=== PATIENT | female | born 1940 | race Caucasian/White ===

== ENCOUNTER → 2017-01-24 | Outpatient (CLI) | payer MEDICARE ==
[~2017-01-24] MED LIST: ALBU17AE3; ASPI-266 PO; ATN50T; CEPH500C PO; ENLP10T; HYDROCODONE 5/500; KCL10CCR; LAMO25TA71 PO; LISI1TAB78 PO; LISINOPRIL/HCTZ; LNS30CCR; MELO-170 PO; METR500T PO; OMEP20CA12; POTA10CA43 PO; VYTORIN 10/40
--- NOTE | 2017-01-24 17:45 | Diagnostic Imaging Report ---
EXAMINATION: Right breast mammogram screening exam with tomography. INDICATION: Screening with no current symptoms. The patient has history of left mastectomy for breast cancer. COMPARISON: 11/25/15. FINDINGS: The right breast is composed of heterogenously dense parenchyma which may decrease mammographic sensitivity. No mass, architectural distortion or suspicious calcification is seen. Allowing for technique and positional differences, no suspicious change is seen. IMPRESSION: No significant change. ACR BI-RADS Category 2: Benign findings. Result letter will be mailed to the patient. Note: At least 10% of breast cancer is not imaged by mammography. Dictated by: Dictated on workstation # [id number]
== END ==
LOC: RAD 14:18
PROVIDERS: ATTEND Nurse Practitioner Family
DX: Z12.31 Encounter for screening mammogram for malignant neoplasm of breast (principal)

== ENCOUNTER 2017-04-09 09:01 | Outpatient (CLI) | payer MEDICARE ==
[~2017-04-09] VITALS: Ht 160 cm; Wt 81.6 kg
[2017-04-09] MEDS ORDERED: LAMO100T PO (14:31)
[2017-04-09] MEDS ORDERED: POTA10TA10 PO (14:31)
[2017-04-09] MEDS ORDERED: LORA0.5T PO (14:31)
[2017-04-09] MEDS ORDERED: OMEP40CA36 PO (14:31)
[2017-04-09] MEDS ORDERED: ATEN100T PO (14:31)
[2017-04-09] MEDS ORDERED: ATOR10TA66 PO (14:31)
[2017-04-09] MEDS ORDERED: ASPI-586 PO (14:31)
[2017-04-09] MEDS ORDERED: LISI1TAB6 PO (14:31)
[2017-04-09] MEDS ORDERED: METF500T4 PO (14:31)
== END 2017-04-09 14:33 ==
LOC: PREOP 09:01
PROVIDERS: ATTEND Internal Medicine
DX: Z01.818 Encounter for other preprocedural examination (principal); K21.9 Gastro-esophageal reflux disease without esophagitis

== ENCOUNTER 2017-04-12 06:47 | Day surgery (SDC) | payer MEDICARE ==
--- NOTE | 2017-04-10 06:19 | HISTORY AND PHYSICAL ---
DATE OF SERVICE: EGD HISTORY AND PHYSICAL HISTORY OF PRESENT ILLNESS: The patient is a 76-year-old white female referred by Dr. Kaplan for EGD due to progressive reflux symptoms despite the use of daily omeprazole 40 mg which she takes each morning. She does report epigastric burning sensation, gets worse with the afternoon and evening progress. She does not wake up at night with symptoms, generally sleeps well. She denies dysphagia and denies bright red blood per rectum, melena and believes her weight to be stable. She denies sore throat or problems with cough. PAST MEDICAL HISTORY: Significant for essential hypertension, hyperlipidemia with no known history of coronary artery disease. She has a history of insulin resistance and generalized anxiety. MEDICATIONS ON ADMISSION: Included atorvastatin 10 mg daily, omeprazole 40 mg q.a.m. daily, metformin 500 mg b.i.d., Lamictal 100 mg b.i.d., 81 mg aspirin daily, atenolol 100 mg daily, potassium 10 mEq daily, lisinopril HCT 10/12.5 tablets daily and lorazepam 0.5 mg q.6 p.r.n. anxiety. PAST SURGICAL HISTORY: She has had a partial hysterectomy in the distant past, left mastectomy over 10 years ago and right total knee replacement. 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 She has no past smoking history with rare alcohol intake. FAMILY HISTORY: She is not aware of any family history for colon cancer, esophageal or gastric cancer. Her mother at the age of 83 with secondary to lung cancer and was apparently a nonsmoker. She is not aware of her father's side of the family history. She had 1 brother who had heart disease and 1 sister with diabetes. PHYSICAL EXAMINATION: GENERAL: Reveals a pleasant overweight white female in no acute distress. I should add that I had performed an EGD on her almost 3 years ago that revealed erythema at the Z-line without evidence for erosive esophagitis and no evidence for obstruction. VITAL SIGNS: Her weight is 190 pounds is stable compared to 3 years ago. HEENT: Oral cavity reveals a Mallampati class 2 configuration without erythema or exudate. CHEST: Clear. CARDIOVASCULAR: Reveals a regular rate and rhythm without murmur, S3 or S4, blood pressure 140/94. ABDOMEN: Soft, supple. Epigastric pain to palpation is noted without rebound or guarding. No mass or organomegaly is noted. The abdomen soft, nondistended, bowel sounds are positive in all 4 quadrants. EXTREMITIES: Reveal no cyanosis, clubbing or edema. ASSESSMENT AND PLAN: For evaluation of refractory reflux symptoms and epigastric pain, the patient was set up for EGD evaluation on 04/12/2017. The patient was advised to abstain from aspirin in the interim and then continue her other home medications. I thank your for the referral of this pleasant lady. Job ID: [id number] DocumentID: [id number] Dictated Date: 04/08/2017 17:33:07 Helpdesk Specialist Date: 04/08/2017 18:33:10 Dictated By: DALAI COLLINS MD MTDD
[~2017-04-12] VITALS: Ht 160 cm; Wt 81.6 kg
[~2017-04-12 06:47] MED LIST changes: +ASPI-586 PO; +ATEN100T PO; +ATOR10TA66 PO; +LAMO100T PO; +LISI1TAB6 PO; +LORA0.5T PO; +METF500T4 PO; +OMEP40CA36 PO; +POTA10TA10 PO
--- OUTSIDE RECORDS SUMMARY | 2017-04-12 06:51 | XMS REPORT ---
Author Author SANDHYA CONKLIN Organization [facility] Address [address] [place] [address] Care Team Providers Care Caramel Candy Maker Helper Name Role Phone KATERINBREANNASANDHYA Unavailable PROBLEMS Type Condition ICD9-CM Code [id number] Code Onset Dates Condition Status SNOMED Code Problem H/O left mastectomy Z90.12 Active 295600181 Problem Gastroesophageal reflux disease, esophagitis presence not specified K21.9 Active 566039077 Problem Hyperlipidemia, unspecified hyperlipidemia type E78.5 Active 73118657 Problem Hallux abducto valgus, right M20.11 Active 685416299 Problem Hallux valgus of right foot M20.11 Active 324139144 Problem Hypokalemia E87.6 Active 96480642 Problem Pre-diabetes R73.09 Active 261863219 Problem Medicare annual wellness visit, subsequent Z00.00 Active 584999843 Problem Encounter for immunization Z23 Active 224692740 Problem Essential hypertension I10 Active 66418054 Problem Seizures R56.9 Active 70441443 Problem Anxiety F41.9 Active 51431774 Problem Family history of diabetes mellitus Z83.3 Active 890573564 Problem History of cancer Z85.9 Active 256689380 ALLERGIES Substance Reaction Event Type Date Status N.K.D.A. Unknown Non Drug Allergy Mar, Unknown SOCIAL HISTORY No smoking Hx information available PLAN OF CARE Activity Details Follow Up 3 Months. annually for preventive care, sooner for chronic health maintenance Reason:[facility] VITAL SIGNS Height 64 in 2016-04-19 Weight 188.0 lbs 2016-04-19 Temperature 97.9 degrees Fahrenheit 2016-04-19 Heart Rate 72 bpm 2016-04-19 Respiratory Rate 18 2016-04-19 BMI 32.27 kg/m2 2016-04-19 Blood pressure systolic 130 mmHg 2016-04-19 Blood pressure diastolic 88 mmHg 2016-04-19 MEDICATIONS Medication Instructions Dosage Frequency Start Date End Date Duration Status Atorvastatin Calcium 10 mg Orally Once a day 1 tablet 24h Nov, 90 days Active Atenolol 100 MG Orally Once a day 1 tablet 24h 90 days Active Potassium Chloride ER 10 MEQ Orally Once a day 1 tablet with food 24h Jun, 90 days Active Aspirin 81 MG Orally Once a day 1 tablet 24h Active Omeprazole 40 mg Orally Once a day 1 capsule 24h 90 days Active Lorazepam 0.5 MG Orally every 4 hrs PRN 1 tablet as needed Active Lamotrigine 100 MG Orally Twice a day 1 tablet 12h 90 days Active Metformin HCl 500 MG Orally Twice a day take one tablet with evening meal for 2 weeks, then take one tablet twice a day with meals 12h Nov, Active Lisinopril-Hydrochlorothiazide 10-12.5 MG Orally Once a day 1 tablet 24h 90 days Active RESULTS Name Result Date Reference Range A1C (IN HOUSE) 2016-04-19 A1C IN HOUSE 5.7 4.3 - 5.6 % Previous A1c Lot [id number] Exp date 12/2017 PROCEDURES Procedure Date Ordered Related Diagnosis Body Site PCV 13 Apr 19, 2016 ANNUAL WELLNESS VST; PPS SUBSQT VST Apr 19, 2016 SINGLE IMMUNIZATION ADMIN Apr 19, 2016 FLUARIX QUAD P-FREE 3 AND UP .50 2015Apr 19, 2016 IMMUNIZATION ADMIN, EACH ADD (please include units) Apr 19, 2016 IMMUNIZATIONS Vaccine Route Administration Date Status FLUARIX QUAD P-FREE 3 AND UP .50 2015 IM Intramuscular Apr 19, 2016 Administered PCV 13 IM Intramuscular Apr 19, 2016 Administered
--- OUTSIDE RECORDS SUMMARY | 2017-04-12 06:51 | XMS REPORT ---
Author Author SANDHYA CONKLIN eClinicalWorks Address Unknown Phone Unavailable Care Team Providers Care Tool Drawing Checker Name Role Phone SANDHYA CONKLIN CP Unavailable Allergies, Adverse Reactions, Alerts Substance Reaction Event Type N.K.D.A. Info Not Available Non Drug Allergy Problems Problem Type Condition Code Onset Dates Condition Status Assessment Pre-diabetes R73.09 Active Assessment Hyperlipidemia, unspecified hyperlipidemia type E78.5 Active Problem Essential hypertension I10 Active Problem Hyperlipidemia, unspecified hyperlipidemia type E78.5 Active Problem Routine health maintenance Z00.00 Active Problem History of cancer Z85.9 Active Problem H/O left mastectomy Z90.12 Active Problem Seizures R56.9 Active Problem Anxiety F41.9 Active Medications Medication Code System Code Instructions Start Date End Date Status Dosage Atorvastatin Calcium [facility] [address]-31 10 mg Orally Once a day Dec 16, 2015 1 tablet Potassium Chloride ER [facility] [address]-08 10 MEQ Orally Once a day 1 tablet with food Metformin HCl [facility] [address]-42 500 MG Orally Twice a day Dec 16, 2015 take one tablet with evening meal for 2 weeks, then take one tablet twice a day with meals Lisinopril-Hydrochlorothiazide [facility] [address]-45 10-12.5 MG Orally Once a day 1 tablet Atenolol [facility] [address]-07 100 MG Orally Once a day 1 tablet Omeprazole [facility] [address]-23 40 mg Orally Once a day 1 capsule Lorazepam [facility] [address]-75 0.5 MG Orally every 4 hrs PRN 1 tablet as needed Lamotrigine [facility] [address]-72 100 MG Orally Twice a day 1 tablet Aspirin [facility] [address]34 81 MG Orally Once a day 1 tablet Procedures Procedure Coding System Code Date Office Visit, Est Pt., Level 3 CPT-4 59392 Dec 16, 2015 [facility] VISIT ESTABLISHED PATIENT CPT-4 G0467 Dec 16, 2015 Vital Signs Date/Time: Dec 16, 2015 Cardiac Monitoring Heart Rate 64 bpm Weight 194.3 lbs Height 64 in BMI 33.35 Index Blood Pressure Diastolic 76 mmHg Blood Pressure Systolic 118 mmHg Results No Known Results Summary Purpose eClinicalWorks Submission
--- OUTSIDE RECORDS SUMMARY | 2017-04-12 06:51 | XMS REPORT ---
Author Author SANDHYA CONKLIN Organization [facility] Address [address] [place] [address] Care Team Providers Care Financial Reporting Analyst Name Role Phone CONKLINBREANNA RobertELE Unavailable PROBLEMS Type Condition ICD9-CM Code [id number] Code Onset Dates Condition Status SNOMED Code Problem H/O left mastectomy Z90.12 Active 940843092 Problem Gastroesophageal reflux disease, esophagitis presence not specified K21.9 Active 532420610 Problem Hyperlipidemia, unspecified hyperlipidemia type E78.5 Active 92677098 Problem Hallux abducto valgus, right M20.11 Active 223521325 Problem Hallux valgus of right foot M20.11 Active 112408120 Problem Hypokalemia E87.6 Active 17280895 Problem Pre-diabetes R73.09 Active 810574056 Problem Medicare annual wellness visit, subsequent Z00.00 Active 058568192 Problem Encounter for immunization Z23 Active 800007959 Problem Essential hypertension I10 Active 46453226 Problem Seizures R56.9 Active 56667871 Problem Anxiety F41.9 Active 65842268 Problem Family history of diabetes mellitus Z83.3 Active 918248693 Problem History of cancer Z85.9 Active 300840362 ALLERGIES No Information SOCIAL HISTORY Never Assessed PLAN OF CARE VITAL SIGNS MEDICATIONS Medication Instructions Dosage Frequency Start Date End Date Duration Status Lorazepam 0.5 MG Orally every 6 hrs PRN 1 tablet as needed 28 days Active RESULTS No Results PROCEDURES No Known procedures IMMUNIZATIONS No Known Immunizations MEDICAL (GENERAL) HISTORY Type Description Date Medical History Hyperlipidemia Medical History Hypertension Medical History Seizures Medical History Acid Reflux Medical History Breast cancer in 1991 Medical History Anxiety Medical History bladder incontinence Surgical History EGD 06/2014 Surgical History Colonoscopy 06/2014 Surgical History Left mastectomy 1991 Surgical History Hysterectomy- still has right ovary 1981 Surgical History Right total knee replacement 1999 Hospitalization History past surgery Hospitalization History Pneumonia 2002
--- OUTSIDE RECORDS SUMMARY | 2017-04-12 06:51 | XMS REPORT ---
Author Author SANDHYA CONKLIN Organization [facility] Address [address] [place] [address] Care Team Providers Care Funeral Home General Manager Name Role Phone SANDHYA CONKLIN Unavailable PROBLEMS Type Condition ICD9-CM Code GRE08-JC Code Onset Dates Condition Status SNOMED Code Problem H/O left mastectomy Z90.12 Active 232126075 Problem Family history of diabetes mellitus Z83.3 Active 035426304 Problem Routine health maintenance Z00.00 Active 628217666 Problem Essential hypertension I10 Active 33369703 Problem Anxiety F41.9 Active 12513486 Problem History of cancer Z85.9 Active 834306469 Problem Hyperlipidemia, unspecified hyperlipidemia type E78.5 Active 13140295 Problem Seizures R56.9 Active 95652119 ALLERGIES Unknown Allergies SOCIAL HISTORY No smoking Hx information available PLAN OF CARE VITAL SIGNS MEDICATIONS Medication Instructions Dosage Frequency Start Date End Date Duration Status Lorazepam 0.5 MG Orally every 4 hrs PRN 1 tablet as needed Active RESULTS No Results PROCEDURES No Known procedures IMMUNIZATIONS No Known Immunizations
--- OUTSIDE RECORDS SUMMARY | 2017-04-12 06:51 | XMS REPORT ---
Author Author SANDHYA CONKLIN eClinicalWorks Address Unknown Phone Unavailable Care Team Providers Care Azure Principal Solution Specialist Name Role Phone SANDHYA CONKLIN CP Unavailable Allergies, Adverse Reactions, Alerts Substance Reaction Event Type N.K.D.A. Info Not Available Non Drug Allergy Problems Problem Type Condition Code Onset Dates Condition Status Assessment Hyperlipidemia, unspecified hyperlipidemia type E78.5 Active Assessment Routine health maintenance Z00.00 Active Assessment Essential hypertension I10 Active Problem Essential hypertension I10 Active Problem Hyperlipidemia, unspecified hyperlipidemia type E78.5 Active Problem Routine health maintenance Z00.00 Active Problem History of cancer Z85.9 Active Problem H/O left mastectomy Z90.12 Active Problem Seizures R56.9 Active Problem Anxiety F41.9 Active Assessment H/O left mastectomy Z90.12 Active Assessment History of cancer Z85.9 Active Assessment Hypokalemia E87.6 Active Assessment Anxiety F41.9 Active Assessment Gastroesophageal reflux disease, esophagitis presence not specified K21.9 Active Assessment Seizures R56.9 Active Medications Medication Code System Code Instructions Start Date End Date Status Dosage Lamotrigine [facility] [address]-49 100 MG Orally Twice a day [address] [facility] [address]-27 0.5 MG Orally every 4 hrs PRN 1 tablet as needed Lisinopril-Hydrochlorothiazide [facility] [address]-93 10-12.5 MG Orally Once a day [address] [facility] [address]-96 40 mg Orally Once a day 1 capsule Potassium Chloride ER [facility] [address]-27 10 MEQ Orally Once a day 1 tablet with food Aspirin [facility] [address] 81 MG Orally Once a day [address] [facility] [address]-38 100 MG Orally Once a day 1 tablet Procedures Procedure Coding System Code Date Office Visit, Est Pt., Level 4 CPT-4 24991 November 18, 2015 [facility] VISIT ESTABLISHED PATIENT CPT-4 G0467 November 18, 2015 Vital Signs Date/Time: November 18, 2015 Cardiac Monitoring Heart Rate 80 bpm Weight 194.7 lbs Height 64 in Blood Pressure Diastolic 90 mmHg Blood Pressure Systolic 168 mmHg Results No Known Results Summary Purpose eClinicalWorks Submission
--- OUTSIDE RECORDS SUMMARY | 2017-04-12 06:51 | XMS REPORT ---
Author Author SANDHYA CONKLIN Organization [employer] Address Unknown Phone Unavailable Care Team Providers Care Cath Laboratory Technician Name Role Phone SANDHYA CONKLIN CP Unavailable Allergies No Known Allergies Problems Problem Type Condition Code Onset Dates Condition Status Problem Family history of diabetes mellitus Z83.3 Active Problem Essential hypertension I10 Active Problem Hyperlipidemia, unspecified hyperlipidemia type E78.5 Active Problem Routine health maintenance Z00.00 Active Problem History of cancer Z85.9 Active Problem H/O left mastectomy Z90.12 Active Problem Seizures R56.9 Active Problem Anxiety F41.9 Active Medications Medication Code System Code Instructions Start Date End Date Status Dosage Lorazepam [facility] [address]-54 0.5 MG Orally every 4 hrs PRN 1 tablet as needed Results No Known Results Summary Purpose eClinicalWorks Submission
--- OUTSIDE RECORDS SUMMARY | 2017-04-12 06:51 | XMS REPORT ---
Author Author SANDHYA CONKLIN Organization [employer] Address Unknown Phone Unavailable Care Team Providers Care Piling Cutter Name Role Phone SANDHYA CONKLIN CP Unavailable Allergies No Known Allergies Problems No Known Problems Medications No Known Medications Results No Known Results Summary Purpose eClinicalWorks Submission
--- OUTSIDE RECORDS SUMMARY | 2017-04-12 06:51 | XMS REPORT ---
Author Author SANDHYA CONKLIN Organization [facility] Address [address] [place] [address] Care Team Providers Care Wire Mesh Gate Assembler Name Role Phone CONKLINBREANNA RobertELE Unavailable PROBLEMS Type Condition ICD9-CM Code BWC50-BA Code Onset Dates Condition Status SNOMED Code Problem H/O left mastectomy Z90.12 Active 326659742 Problem Gastroesophageal reflux disease, esophagitis presence not specified K21.9 Active 141103218 Problem Hyperlipidemia, unspecified hyperlipidemia type E78.5 Active 16898998 Problem Hallux abducto valgus, right M20.11 Active 904032262 Problem Hallux valgus of right foot M20.11 Active 511415955 Problem Hypokalemia E87.6 Active 53902287 Problem Pre-diabetes R73.09 Active 895695046 Problem Medicare annual wellness visit, subsequent Z00.00 Active 107484830 Problem Encounter for immunization Z23 Active 985508589 Problem Essential hypertension I10 Active 88974010 Problem Seizures R56.9 Active 97144269 Problem Anxiety F41.9 Active 82577952 Problem Family history of diabetes mellitus Z83.3 Active 723587175 Problem History of cancer Z85.9 Active 384012208 ALLERGIES No Information SOCIAL HISTORY Never Assessed PLAN OF CARE VITAL SIGNS MEDICATIONS Medication Instructions Dosage Frequency Start Date End Date Duration Status Lorazepam 0.5 MG Orally every 4 hrs PRN 1 tablet as needed 28 [...]
--- OUTSIDE RECORDS SUMMARY | 2017-04-12 06:52 | XMS REPORT | Continuity of Care Document ---
Author Author [facility] Organization [facility] Address Unknown Phone Unavailable Allergies Active Description Code Type Severity Reaction Onset Reported/Identified Relationship to Patient Clinical Status Yes codeine [id number] Drug Allergy Unknown N/A 07/09/2006 Yes Penicillins [id number] Drug Allergy Unknown N/A 09/08/2007 Yes Sulfa (Sulfonamide Antibiotics) [id number] Drug Allergy Unknown N/A 2007 Yes iodine [id number] Drug Allergy Unknown N/A 07/16/2014 Yes Iodinated Contrast- Oral and IV Dye [id number] Drug Allergy Unknown N/A 03/2017 Medications There is no data. Problems Date Dx Coded Attending Type Code Diagnosis Diagnosed By 11/22/2008 Ot 719.47 11/22/2008 Ot V57.1 01/25/2014 MARIANO CHILDS, DEMI Leblanc Ot 599.0 URIN TRACT INFECTION NOS 01/25/2014 MARIANO CHILDS, DEMI Leblanc Ot 780.4 DIZZINESS AND GIDDINESS 03/30/2014 Ot V76.12 03/30/2014 Ot V10.3 03/30/2014 Ot V76.11 03/30/2014 Ot 780.39 05/06/2014 Ot 793.89 05/06/2014 Ot V10.3 05/06/2014 Ot V76.11 05/06/2014 Ot 611.72 05/06/2014 Ot 611.72 05/06/2014 Ot V67.9 05/06/2014 Ot 174.9 05/06/2014 Ot V10.3 05/06/2014 Ot V76.11 05/06/2014 Ot 715.36 05/06/2014 Ot V43.65 05/06/2014 Ot 241.0 05/06/2014 Ot 244.9 05/06/2014 Ot 787.20 05/06/2014 ANNA VALLECILLO Ot 174.9 05/06/2014 ANNA VALLECILLO Ot V76.11 05/06/2014 PHOENIX CHILDS, FRANKLIN A Ot 298.9 05/06/2014 [place]EN[place] CHILDS, FRANKLIN A Ot 345.90 05/06/2014 [place]EN[place] CHILDS, FRANKLIN A Ot 793.0 05/06/2014 [place]EN[place] CHILDS, FRANKLIN A Ot 715.96 05/06/2014 PH[place]EN[place] CHILDS, FRANKLIN A Ot 959.7 05/06/2014 PHOENIX CHILDS, FRANKLIN A Ot E000.8 05/06/2014 PH[place]ENIX CHILDS, FRANKLIN A Ot E849.0 05/06/2014 PH[place]EN[place] CHILDS, FRANKLIN A Ot E888.9 05/06/2014 [place]EN[place] CHILDS, FRANKLIN A Ot V43.65 05/29/2014 PHOENIX CHILDS, FRANKLIN Bony Ot V76.12 07/16/2014 Ot 530.10 ESOPHAGITIS NOS 07/16/2014 Ot 562.10 DIVERTICULOSIS COLON (W/O MENT OF HEMORR 07/16/2014 Ot V18.51 FAMILY HISTORY, COLONIC POLYPS 07/16/2014 Ot V76.51 SCREEN MAL NEOP-COLON 08/13/2014 Ot V72.84 07/04/2015 KRISTY CHOUDHARY DO Ot E07.9 DISORDER OF THYROID, UNSPECIFIED 07/04/2015 KRISTY CHOUDHARY DO Ot S20.211A CONTUSION OF RIGHT FRONT WALL OF THORAX, 07/04/2015 KRISTY CHOUDHARY DO Ot W19.XXXA UNSPECIFIED FALL, INITIAL ENCOUNTER 07/04/2015 KRISTY CHOUDHARY DO Ot Y99.8 OTHER EXTERNAL CAUSE STATUS 07/04/2015 KRISTY CHOUDHARY DO Ot Z90.12 ACQUIRED ABSENCE OF LEFT BREAST AND NIPP 10/12/2015 Ot 611.72 LUMP OR MASS IN BREAST 10/12/2015 Ot V67.9 FOLLOW-UP EXAM NOS 10/12/2015 Ot 174.9 MALIGN NEOPL BREAST NOS 10/12/2015 Ot V10.3 HX OF BREAST MALIGNANCY 10/12/2015 Ot V76.11 SCRN MAMMO- HIGH RISK PT, MALIGNANT NEOPL 10/12/2015 Ot 715.36 LOC OSTEOARTH NOS-L/LEG 10/12/2015 Ot V43.65 KNEE JOINT REPLACEMENT STATUS 10/12/2015 Ot 241.0 NONTOX UNINODULAR GOITER 10/12/2015 Ot 244.9 HYPOTHYROIDISM NOS 10/12/2015 Ot 787.20 DYSPHAGIA, UNSPECIFIED 10/12/2015 ANNA VALLECILLO PATTERNMAKER HAND Ot 174.9 MALIGN NEOPL BREAST NOS 10/12/2015 ANNA VALLECILLOP Ot V76.11 SCRN MAMMO-HIGH RISK PT, MALIGNANT NEOPL 10/12/2015 PHOENIX CHILDS, FRANKLIN Lovett Ot 298.9 PSYCHOSIS NOS 10/12/2015 PHOENIX CHILDS, FRANKLIN Lovett Ot 345.90 EPILEPSY UNSPEC W/O MENTION INTRACTABLE 10/12/2015 PH[place]EN[place] CHILDS, FRANKLIN Lovett Ot 793.0 NOSP (ABN) FINDINGS ON RADIOLOGICAL OT 10/12/2015 FRANKLIN GARIBAY MD Ot 715.96 OSTEOARTHROS NOS-L/LEG 10/12/2015 FRANKLIN GARIBAY MD Ot 959.7 LOWER LEG INJURY NOS 10/12/2015 FRANKLIN GARIBAY MD Ot E000.8 OTHER EXTERNAL CAUSE STATUS 10/12/2015 FRANKLIN GARIBAY MD Ot E849.0 ACCIDENT IN HOME 10/12/2015 FRANKLIN GARIBAY MD Ot E888.9 FALL NOS 10/12/2015 FRANKLIN GARIBAY MD Ot V43.65 KNEE JOINT REPLACEMENT STATUS 10/12/2015 FRANKLIN GARIBAY MD Ot V76.12 OTH SCREEN MAMMO-MALIGN NEOPLASM OF STEPHANIE 10/12/2015 Ot V72.84 EXAM PRE- OPERATIVE NOS 11/25/2015 Ot 611.72 LUMP OR MASS IN BREAST 11/25/2015 Ot V67.9 FOLLOW-UP EXAM NOS 11/25/2015 Ot 174.9 MALIGN NEOPL BREAST NOS 11/25/2015 Ot V10.3 HX OF BREAST MALIGNANCY 11/25/2015 Ot V76.11 SCRN MAMMO- HIGH RISK PT, MALIGNANT NEOPL 11/25/2015 Ot 715.36 LOC OSTEOARTH NOS-L/LEG 11/25/2015 Ot V43.65 KNEE JOINT REPLACEMENT STATUS 11/25/2015 Ot 241.0 NONTOX UNINODULAR GOITER 11/25/2015 Ot 244.9 HYPOTHYROIDISM NOS 11/25/2015 Ot 787.20 DYSPHAGIA, UNSPECIFIED 11/25/2015 ANNA VALLECILLO PATTERNMAKER HAND Ot 174.9 MALIGN NEOPL BREAST NOS 11/25/2015 VALLECILLO, ANNA M PATTERNMAKER HAND Ot V76.11 SCRN MAMMO-HIGH RISK PT, MALIGNANT NEOPL 11/25/2015 PHOEN[place] CHILDS, FRANKLIN Lovett Ot 298.9 PSYCHOSIS NOS 11/25/2015 [place]EN[place] CHILDS, FRANKLIN Lovett Ot 345.90 EPILEPSY UNSPEC W/O MENTION INTRACTABLE 11/25/2015 FRANKLIN GARIBAY MD Ot 793.0 NOSP (ABN) FINDINGS ON RADIOLOGICAL OT 11/25/2015 FRANKLIN GARIBAY MD Ot 715.96 OSTEOARTHROS NOS-L/LEG 11/25/2015 FRANKLIN GARIBAY MD Ot 959.7 LOWER LEG INJURY NOS 11/25/2015 PHOENIX CHILDS, FRANKLIN Lovett Ot E000.8 OTHER EXTERNAL CAUSE STATUS 11/25/2015 FRANKLIN GARIBAY MD Ot E849.0 ACCIDENT IN HOME 11/25/2015 FRANKLIN GARIBAY MD Ot E888.9 FALL NOS 11/25/2015 FRANKLIN GARIBAY MD Ot V43.65 KNEE JOINT REPLACEMENT STATUS 11/25/2015 FRANKLIN GARIBAY MD Ot V76.12 OTH SCREEN MAMMO-MALIGN NEOPLASM OF STEPHANIE 11/25/2015 Ot V72.84 EXAM PRE- OPERATIVE NOS 11/28/2015 SANDHYA CONKLIN [employer] CARRIER ASSISTANT Ot Z12.31 ENCNTR SCREEN MAMMOGRAM FOR MALIGNANT NE 12/16/2015 SANDHYA CONKLIN [employer] ASSISTANT Ot Z12.31 ENCNTR SCREEN MAMMOGRAM FOR MALIGNANT NE 12/16/2015 SANDHYA CONKLIN [employer] ASSISTANT Ot Z90.12 ACQUIRED ABSENCE OF LEFT BREAST AND NIPP 01/21/2017 SANDHYA CONKLIN [employer] ASSISTANT Ot Z12.31 ENCNTR SCREEN MAMMOGRAM FOR MALIGNANT NE 01/24/2017 SANDHYA CONKLIN [employer] ASSISTANT Ot Z12.31 ENCNTR SCREEN MAMMOGRAM FOR MALIGNANT NE 01/24/2017 Ot V10.3 HX OF BREAST MALIGNANCY 01/24/2017 Ot V76.11 SCRN MAMMO- HIGH RISK PT, MALIGNANT NEOPL 01/24/2017 Ot 715.36 LOC OSTEOARTH NOS-L/LEG 01/24/2017 Ot V43.65 KNEE JOINT REPLACEMENT STATUS 01/24/2017 Ot 241.0 NONTOX UNINODULAR GOITER 01/24/2017 Ot 244.9 HYPOTHYROIDISM NOS 01/24/2017 Ot 787.20 DYSPHAGIA, UNSPECIFIED 01/24/2017 ANNA VALLECILLO PATTERNMAKER HAND Ot 174.9 MALIGN NEOPL BREAST NOS 01/24/2017 ANNA VALLECILLO PATTERNMAKER HAND Ot V76.11 SCRN MAMMO-HIGH RISK PT, MALIGNANT NEOPL 01/24/2017 PHOENIX CHILDS, FRANKLIN Lovett Ot 298.9 PSYCHOSIS NOS 01/24/2017 FRANKLIN GARIBAY MD Ot 345.90 EPILEPSY UNSPEC W/O MENTION INTRACTABLE 01/24/2017 FRANKLIN GARIBAY MD Ot 793.0 NOSP (ABN) FINDINGS ON RADIOLOGICAL OT 01/24/2017 FRANKLIN GARIBAY MD Ot 715.96 OSTEOARTHROS NOS-L/LEG 01/24/2017 FRANKLIN GARIBAY MD Ot 959.7 LOWER LEG INJURY NOS 01/24/2017 FRANKLIN GARIBAY MD Ot E000.8 OTHER EXTERNAL CAUSE STATUS 01/24/2017 FRANKLIN GARIBAY MD Ot E849.0 ACCIDENT IN HOME 01/24/2017 FRANKLIN GARIBAY MD Ot E888.9 FALL NOS 01/24/2017 FRANKLIN GARIBAY MD Ot V43.65 KNEE JOINT REPLACEMENT STATUS 01/24/2017 FRANKLIN GARIBAY MD Ot V76.12 OTH SCREEN MAMMO-MALIGN NEOPLASM OF STEPHANIE 01/24/2017 Ot V72.84 EXAM PRE- OPERATIVE NOS 01/24/2017 SANDHYA CONKLIN [employer] ASSISTANT Ot Z12.31 ENCNTR SCREEN MAMMOGRAM FOR MALIGNANT NE 01/24/2017 SANDHYA CONKLIN [employer] ASSISTANT Ot Z90.12 ACQUIRED ABSENCE OF LEFT BREAST AND NIPP 01/24/2017 SANDHYA CONKLIN [employer] ASSISTANT Ot Z12.31 ENCNTR SCREEN MAMMOGRAM FOR MALIGNANT NE 01/30/2017 SANDHYA CONKLIN [employer] ASSISTANT Ot Z12.31 ENCNTR SCREEN MAMMOGRAM FOR MALIGNANT NE 02/13/2017 SANDHYA CONKLIN [employer] ASSISTANT Ot Z12.31 ENCNTR SCREEN MAMMOGRAM FOR MALIGNANT NE Procedures There is no data. Results There is no data. Encounters ACCT No. Visit Date/Time Discharge Status Pt. Type Provider Facility Loc./Unit Complaint [id number] 04/09/2017 09:01:00 04/09/2017 14:33:00 DIS Outpatient DENNIS CHILDS, DALIA Leblanc [facility] PREOP EGD [id number] 01/24/2017 14:18:00 01/24/2017 23:59:59 CLS Outpatient SANDHYA CONKLIN [employer] ASSISTANT [facility] RAD Z12.31 [id number] 11/25/2015 09:35:00 11/25/2015 23:59:59 CLS Outpatient SANDHYA CONKLIN [employer] ASSISTANT [facility] RAD H/O OF LEFT MASTECTOMY [id number] 07/04/2015 13:05:00 07/04/2015 16:34:00 DIS Emergency KRISTY CHOUDHARY DO [facility] ER FALL/RIGHT RIB PAIN [id number] 05/06/2014 16:04:00 05/06/2014 23:59:59 CLS Outpatient FRANKLIN GARIBAY MD [facility] RAD SCREENING [id number] 01/25/2014 08:12:00 01/25/2014 11:04:00 DIS Emergency DEMI QUINTANA MD [facility] ER DIZZINESS/WEAKNESS VOMITING [id number] 09/16/2013 15:28:00 09/16/2013 23:59:59 CLS Outpatient FRANKLIN GARIBAY MD [facility] RAD FALL AT HOME/PAIN [id number] 08/20/2013 13:12:00 08/20/2013 23:59:59 CLS Outpatient FRANKLIN GARIBAY MD [facility] RAD SEIZURE DISORDER [id number] 02/05/2013 15:34:00 02/05/2013 23:59:59 CLS Outpatient ANNA VALLECILLO [facility] RAD SCREENING [id number] 04/12/2017 06:47:00 ACT Outpatient DALIA COLLINS MD [facility] ENDO GERD [id number] 07/16/2014 07:30:00 Document Registration [id number] 07/15/2014 05:57:00 Document Registration [id number] 03/30/2014 10:21:00 Document Registration [id number] 03/30/2014 10:21:00 Document Registration [id number] 03/30/2014 10:21:00 Document Registration [id number] 07/11/2012 14:46:00 Document Registration [id number] 12/25/2011 15:47:00 Document Registration [id number] 12/17/2011 10:52:00 Document Registration [id number] 01/22/2011 12:27:00 Document Registration [id number] 07/19/2010 08:47:00 Document Registration [id number] 12/14/2009 07:44:00 Document Registration [id number] 12/09/2009 14:17:00 Document Registration [id number] 11/05/2008 12:40:00 Document Registration [id number] 10/14/2008 08:56:00 Document Registration [id number] 04/27/2008 10:13:00 Document Registration [id number] 04/23/2007 10:05:00 Document Registration
--- OUTSIDE RECORDS SUMMARY | 2017-04-12 06:52 | XMS REPORT ---
Author Author LISA CARRILLO Organization [facility] Address [address] [place] [address] Care Team Providers Care Booking Officer Name Role Phone LISA CARRILLO Unavailable PROBLEMS Type Condition ICD9-CM Code [id number] Code Onset Dates Condition Status SNOMED Code Problem H/O left mastectomy Z90.12 Active 560378578 Problem Gastroesophageal reflux disease, esophagitis presence not specified K21.9 Active 191861654 Problem Hyperlipidemia, unspecified hyperlipidemia type E78.5 Active 60140294 Problem Hallux abducto valgus, right M20.11 Active 391839496 Problem Hallux valgus of right foot M20.11 Active 076238835 Problem Hypokalemia E87.6 Active 29029031 Problem Pre-diabetes R73.09 Active 476554800 Problem Medicare annual wellness visit, subsequent Z00.00 Active 287429164 Problem Encounter for immunization Z23 Active 198880818 Problem Essential hypertension I10 Active 38321692 Problem Seizures R56.9 Active 58538593 Problem Anxiety F41.9 Active 41258655 Problem Family history of diabetes mellitus Z83.3 Active 941395605 Problem History of cancer Z85.9 Active 905969383 ALLERGIES No Information SOCIAL HISTORY Never Assessed PLAN OF CARE Activity Details Follow Up prn Reason: VITAL SIGNS Height 64 in 2016-08-17 Blood pressure systolic 140 mmHg 2016-08-17 Blood pressure diastolic 90 mmHg 2016-08-17 MEDICATIONS Unknown Medications RESULTS No Results PROCEDURES Procedure Date Ordered Result Body Site [facility] VISIT ESTABLISHED PATIENT August 17, 2016 IMMUNIZATIONS No Known Immunizations MEDICAL (GENERAL) HISTORY [...]
--- OUTSIDE RECORDS SUMMARY | 2017-04-12 06:52 | XMS REPORT ---
Author Author SANDHYA CONKLIN Organization [facility] Address [address] [place] [address] Care Team Providers Care Identification Officer Name Role Phone CONKLINBREANNA RobertELE Unavailable PROBLEMS Type Condition ICD9-CM Code [id number] Code Onset Dates Condition Status SNOMED Code Problem H/O left mastectomy Z90.12 Active 193844351 Problem Gastroesophageal reflux disease, esophagitis presence not specified K21.9 Active 498392170 Problem Hyperlipidemia, unspecified hyperlipidemia type E78.5 Active 69479603 Problem Hallux abducto valgus, right M20.11 Active 919544193 Problem Hallux valgus of right foot M20.11 Active 183737225 Problem Hypokalemia E87.6 Active 89020282 Problem Pre-diabetes R73.09 Active 705303775 Problem Medicare annual wellness visit, subsequent Z00.00 Active 667384477 Problem Encounter for immunization Z23 Active 088790598 Problem Essential hypertension I10 Active 00716972 Problem Seizures R56.9 Active 10108444 Problem Anxiety F41.9 Active 09639143 Problem Family history of diabetes mellitus Z83.3 Active 016501649 Problem History of cancer Z85.9 Active 924982989 ALLERGIES No Information SOCIAL HISTORY Never Assessed PLAN OF CARE VITAL SIGNS MEDICATIONS Medication Instructions Dosage Frequency Start Date End Date Duration Status Lisinopril-Hydrochlorothiazide 10-12.5 MG Orally Once a day 1 tablet 24h 90 days Active RESULTS No Results PROCEDURES No [...]
--- OUTSIDE RECORDS SUMMARY | 2017-04-12 06:52 | XMS REPORT ---
Author Author SANDHYA CONKLIN Organization [employer] Address Unknown Phone Unavailable Care Team Providers Care Veneer Press Operator Name Role Phone SANDHYA CONKLIN CP Unavailable Allergies No Known Allergies Problems Problem Type Condition Code Onset Dates Condition Status Assessment H/O left mastectomy Z90.12 Active Problem Essential hypertension I10 Active Problem Hyperlipidemia, unspecified hyperlipidemia type E78.5 Active Problem Routine health maintenance Z00.00 Active Problem History of cancer Z85.9 Active Problem H/O left mastectomy Z90.12 Active Problem Seizures R56.9 Active Problem Anxiety F41.9 Active Medications No Known Medications Results No Known Results Summary Purpose [employer] Submission
--- OUTSIDE RECORDS SUMMARY | 2017-04-12 06:52 | XMS REPORT ---
Author Author SANDHYA CONKLIN Organization [employer] Address Unknown Phone Unavailable Care Team Providers Care Neck Cutter Name Role Phone SANDHYA CONKLIN CP Unavailable Allergies No Known Allergies Problems Problem Type Condition Code Onset Dates Condition Status Assessment Gastroesophageal reflux disease, esophagitis presence not specified K21.9 Active Assessment Essential hypertension I10 Active Assessment Hyperlipidemia, unspecified hyperlipidemia type E78.5 Active Assessment Hypokalemia E87.6 Active Problem Essential hypertension I10 Active Problem Hyperlipidemia, unspecified hyperlipidemia type E78.5 Active Problem Routine health maintenance Z00.00 Active Problem History of cancer Z85.9 Active Problem H/O left mastectomy Z90.12 Active Problem Seizures R56.9 Active Problem Anxiety F41.9 Active Medications No Known Medications Procedures Procedure Coding System Code Date GLYCATED HEMOGLOBIN TEST CPT-4 82156 Dec 12, 2015 VENIPUNCT, ROUTINE* CPT-4 45728 Dec 12, 2015 [facility] CPT-4 NOBLL Dec 12, 2015 Results No Known Results Summary Purpose [employer] Submission
[2017-04-12] MEDS ORDERED: D5 LR IV SOLUTION 1,000 ML IV STA (06:59)
[2017-04-12] MEDS ORDERED: HURRICAINE EXT TUBE (BENZOCAINE) XX PRN (07:00)
[2017-04-12] MEDS ORDERED: MIDAZOLAM 2 MG/2 ML (VERSED) VIAL IVP PRN (07:00)
[2017-04-12] MEDS ORDERED: 1/2 NS IV SOLUTION 1,000 ML IV ONE (07:08)
[2017-04-12 07:17] VITALS: BP 176/74
--- NOTE | 2017-04-12 07:45 | Pre-Op Note & Conscious Sedat ---
Pre-Operative Progress Note H&P Reviewed The H&P was reviewed, patient examined and no changes noted. Date H&P Reviewed: Apr 12, 2017 Time H&P Reviewed: 07:45 Conscious Sedation Pre-Proced ASA Class: 2 Airway Mallampati Classification: ([place] appropriate class) I. II. III, IV Lungs Heart ASA score ASA 1: a normal healthy patient ASA 2: a patient with a mild systemic disease (mid diabetes, controlled hypertension, obesity ASA 3: a patient with a severe systemic disease that limits activity (angina , COPD, prior Myocardial infarction) ASA 4: a patient with an incapacitating disease that is a constant threat to life (CHF, renal failure) ASA 5: a moribund patient not expected to survive 24 hrs. (ruptured aneurysm) ASA 6: a declared brain patient whose organs are being harvested. For emergent operations, add the letter E after the classification Grade 2 Sedation Plan: Analgesia, Amnesia, Plan communicated to team members, Discussed options with patient/fam, Discussed risks with patient/fam Note The patient is an appropriate candidate to undergo the planned procedure, sedation, and anesthesia. The patient immediately re-assessed prior to indication. DALIA COLLINS MD Apr 12, 2017 07:45
[2017-04-12] MEDS ORDERED: HURRICAINE EXT TUBE (BENZOCAINE) ONE (07:55)
[2017-04-12] MEDS ORDERED: MIDAZOLAM 2 MG/2 ML (VERSED) VIAL ONE (07:55)
[2017-04-12] MEDS ORDERED: fentaNYL INJECTION 100 MCG/2 ML AMP ONE (07:55)
[2017-04-12] MEDS ORDERED: LIDOCAINE JELLY 2% (XYLOCAINE) 5 ML TUBE ONE (07:56)
[2017-04-12] MEDS: fentaNYL INJECTION 100 MCG/2 ML AMP IVP PRN ×2 (08:03→08:10)
[2017-04-12 08:45] VITALS: BP 128/65
[2017-04-12 09:15] VITALS: BP 156/82
[2017-04-12 09:50] VITALS: BP 156/82
--- NOTE | 2017-04-12 18:48 | OPERATIVE REPORT ---
DATE OF SERVICE: EGD SUMMARY INDICATION FOR THE PROCEDURE: Reflux symptoms refractory to daily PPI therapy. DESCRIPTION OF PROCEDURE: The patient was placed in the left lateral decubitus position. The endoscope was inserted in the oral cavity and under direct visualization, the esophagus was intubated. The endoscope was passed down the esophagus through the stomach and second portion of the duodenum. A careful inspection was made as the endoscope was withdrawn. The patient tolerated the procedure well. FINDINGS: The esophagus was unremarkable. There was no evidence of rings, webs, strictures, Robert's change or erosive esophagitis. Biopsy was obtained from the gastroesophageal junction for histopathology evaluation. A small sliding hiatal hernia was present. The cardia, fundus and antrum of the stomach were unremarkable. There was no evidence for gastritis or peptic ulcer disease. The pylorus, the pyloric channel, the duodenal bulb and the second portion of the duodenum were unremarkable as well. ASSESSMENT: Small sliding hiatal hernia is present without evidence for erosive esophagitis. This is an otherwise normal EGD with no evidence for peptic ulcer disease. After reassurance and discussing treatment options, we will have the patient just add Gaviscon or Maalox per taste preference 2 tabs as needed for breakthrough symptoms. If this is not adequate, then could increase omeprazole to b.i.d. before breakfast and the evening meal. I thank you for the referral of this pleasant lady. Job ID: [id number] DocumentID: [id number] Dictated Date: 04/12/2017 10:48:15 Fundraising Assistant Date: 04/12/2017 18:47:58 Dictated By: DALIA COLLINS MD [facility]
== END 2017-04-12 09:50 | disposition home or self-care (01) ==
LOC: ENDO 06:47
PROVIDERS: ATTEND Internal Medicine
DX: K21.9 Gastro-esophageal reflux disease without esophagitis (principal); K44.9 Diaphragmatic hernia without obstruction or gangrene; I10 Essential (primary) hypertension; E78.5 Hyperlipidemia, unspecified; F41.9 Anxiety disorder, unspecified; E88.81 Metabolic syndrome and other insulin resistance; Z79.84 Long term (current) use of oral hypoglycemic drugs; Z79.899 Other long term (current) drug therapy; Z96.651 Presence of right artificial knee joint

== ENCOUNTER → 2017-10-14 | Outpatient (CLI) | payer MEDICARE ==
[~2017-10-14] MED LIST changes: -METF500T4 PO; +METF500T5 PO
== END ==
LOC: RAD 11:51
PROVIDERS: ATTEND Nurse Practitioner Family
DX: Z53.8 Procedure and treatment not carried out for other reasons (principal); S89.91XD Unspecified injury of right lower leg, subsequent encounter

== ENCOUNTER → 2018-08-11 | Outpatient (CLI) | payer MEDICARE ==
[~2018-08-11] MED LIST changes: +METF-397 PO; -METF500T5 PO
--- NOTE | 2018-08-11 14:06 | Diagnostic Imaging Report ---
INDICATION: Left breast carcinoma, status post mastectomy. Correlation is made with prior mammogram from 01/24/2017 and 11/25/2015. Unilateral right 2-D and 3-D diagnostic mammography was performed with CAD. Scattered fibroglandular densities in the right breast are noted. The parenchymal pattern is stable. No mass or malignant appearing microcalcifications are seen. Right axilla is unremarkable. IMPRESSION: BI-RADS category one No mammographic features suspicious for malignancy are identified. ACR BI-RADS Category 1: Negative. Result letter will be mailed to the patient. Note: At least 10% of breast cancer is not imaged by mammography. Dictated by: Dictated on workstation # [id number]
== END ==
LOC: RAD 12:28
PROVIDERS: ATTEND Nurse Practitioner Primary Care
DX: C50.912 Malignant neoplasm of unspecified site of left female breast (principal); R92.2 Inconclusive mammogram; Z90.12 Acquired absence of left breast and nipple

== ENCOUNTER → 2019-09-18 | Outpatient (CLI) | payer MEDICARE ==
[~2019-09-18] MED LIST changes: -LAMO100T PO; +LAMO100T5 PO; +LISI1TAB29 PO; -LISI1TAB6 PO; +OMEP40CA27 PO; -OMEP40CA36 PO
--- NOTE | 2019-09-18 09:58 | Diagnostic Imaging Report ---
INDICATION: Routine screening. Comparison is made with prior mammogram from 08/11/2018 and 01/24/2017. Unilateral right 2-D and 3-D screening mammography was performed with CAD. Scattered fibroglandular densities are identified in the right breast. The parenchymal pattern is stable. No dominant mass or malignant-appearing microcalcifications are seen. Right axilla is unremarkable. IMPRESSION: BI-RADS Category 1 No mammographic features suspicious for malignancy are identified. ACR BI-RADS Category 1: Negative. Result letter will be mailed to the patient. Note: At least 10% of breast cancer is not imaged by mammography. Dictated by: Dictated on workstation # [id number]
== END ==
LOC: RAD 07:52
PROVIDERS: ATTEND Family Medicine
DX: Z12.31 Encounter for screening mammogram for malignant neoplasm of breast (principal)
CPT/HCPCS: 77063

== ENCOUNTER → 2020-01-27 | Outpatient (CLI) | payer MEDICARE ==
--- NOTE | 2020-01-27 11:18 | Diagnostic Imaging Report ---
INDICATION: Epigastric pain. Right upper and lower quadrant pain. PROCEDURE: Ultrasound abdomen complete. TECHNIQUE: Multiple Real-time grayscale images were obtained of the abdomen in various projections. COMPARISON: There are no prior abdominal ultrasound examinations available for comparison. The CT chest, abdomen, and pelvis exam of 07/04/2015 failed to show any abnormality of the liver or gallbladder. FINDINGS: There is no evidence for cholelithiasis or acute cholecystitis and the common bile duct is not dilated. The liver does not appear to be enlarged. There is no focal mass involving the liver and the biliary tree is not abnormally dilated. Spectral and color-flow imaging of the hepatic and portal vein shows that the veins are patent and there is normal directional flow within the veins. The spleen, proximal aorta, inferior vena cava, and the kidneys are unremarkable for an acute abnormality. There is a small 1.2 x 1.3 cm anechoic area in the midportion of the right kidney. Most likely, this represents a cyst. There did seem to be a similar sized area of low density in the right kidney on the prior CT exam. The pancreas is obscured by bowel gas. IMPRESSION: 1. There is no acute abnormality of the abdomen although the pancreas was not well-visualized. 2. If clinical concern regarding an underlying abnormality of the gallbladder persists and further imaging is desired, then a Nuclear Medicine hepatobiliary scan would be recommended. Dictated by: Dictated on workstation # [id number]
== END ==
LOC: RAD 09:12
PROVIDERS: ATTEND Family Medicine
DX: R10.13 Epigastric pain (principal); R10.11 Right upper quadrant pain; R10.12 Left upper quadrant pain
CPT/HCPCS: 76700

== ENCOUNTER → 2020-09-19 | Outpatient (CLI) | payer MEDICARE ==
--- NOTE | 2020-09-19 10:55 | Diagnostic Imaging Report ---
INDICATION: Routine screening. COMPARISON: 09/18/2019 and 08/11/2018. TECHNIQUE: 2D and 3D unilateral right screening mammography was performed with CAD. FINDINGS: Scattered fibroglandular densities are identified in the right breast. The parenchymal pattern is stable. No mass or malignant appearing microcalcifications are seen. The right axilla is unremarkable. IMPRESSION: No mammographic features suspicious for malignancy are identified. ACR BI-RADS Category 1: Negative. Result letter will be mailed to the patient. Note: At least 10% of breast cancer is not imaged by mammography. Dictated by: Dictated on workstation # [id number]
== END ==
LOC: RAD 08:00
PROVIDERS: ATTEND Family Medicine
DX: Z12.31 Encounter for screening mammogram for malignant neoplasm of breast (principal)
CPT/HCPCS: 77063

== ENCOUNTER 2021-01-22 09:19 | Emergency (ER) | payer MEDICARE ==
[~2021-01-22] VITALS: Ht 160 cm; Wt 90.7 kg
[~2021-01-22 09:19] MED LIST changes: -OMEP40CA27 PO; +OMEP40CA6 PO
[2021-01-22] MEDS ORDERED: LACTATED RINGERS 1,000 ML IV ONE (10:15)
[2021-01-22 10:34] LABS: BASOPHILS % (AUTO) 0 % (0-10); EOSINOPHILS # (AUTO) 0.1 10^3/uL (0.0-0.3); EOSINOPHILS % (AUTO) 1 % (0-10); HEMATOCRIT 46 % (35-52); HEMOGLOBIN 14.7 g/dL (11.5-16.0); LYMPHOCYTES # (AUTO) 1.3 10^3/uL (1.0-4.0); LYMPHOCYTES % (AUTO) 16 % (12-44); MEAN CORPUSCULAR HEMOGLOBIN 30 pg (25-34); MEAN CORPUSCULAR HGB CONC 32 g/dL (32-36); MEAN CORPUSCULAR VOLUME 95 fL (80-99); MEAN PLATELET VOLUME 10.1 fL (9.0-12.2); MONOCYTES # (AUTO) 0.8 10^3/uL (0.0-1.0); MONOCYTES % (AUTO) 10 % (0-12); NEUTROPHILS % (AUTO) 73 % (42-75); PLATELET COUNT 225 10^3/uL (130-400); WHITE BLOOD COUNT 8.3 10^3/uL (4.3-11.0)
--- NOTE | 2021-01-22 10:36 | ED General ---
General Chief Complaint: Cough/Cold/Flu Symptoms Stated Complaint: NEG COVID TEST 01/21, COUGH HEADACHE,SORE THROAT Nursing Triage Note: pt presents to ed via pov from home with complaints of cough, sore throat, and malaise since Saturday. pt reprots she tested negative for covid on 01/21 at [facility]. Source of Information: Patient Exam Limitations: No Limitations (DEMI QUINTANA MD) History of Present Illness Date Seen by Provider: Jan 22, 2021 Time Seen by Provider: 10:07 (DEMI QUINTANA MD) Initial Comments To ER with reports of a productive cough, nasal congestion and paranasal pressure and drainage for about 4 days. No fevers or chills. Tested negative for Covid on 01/21. Timing/Duration: 3-4 Days Severity: Moderate Associated Systoms: Cough (GISELLE BROWN APRN) Allergies and Home Medications Allergies Coded Allergies: Iodinated Contrast- Oral and IV Dye (Verified Allergy, Unknown, 04/09/17) Patient Home Medication List Home Medication List Reviewed: Yes (GISELLE BROWN APRN) Aspirin (Aspir 81) 81 Mg Tablet.dr, 81 MG PO DAILY, (Reported) Entered as Reported by: ASHLEY ROSSI on 04/09/17 1431 Atenolol (Atenolol) 100 Mg Tablet, 100 MG PO DAILY, (Reported) Entered as Reported by: ASHLEY ROSSI on 04/09/17 1431 Atorvastatin Calcium (Atorvastatin Calcium) 10 Mg Tablet, 10 MG PO HS, (Reported) Entered as Reported by: ASHLEY ROSSI on 04/09/17 1431 Doxycycline Hyclate (Doxycycline Hyclate) 100 Mg Capsule, 100 MG PO BID Prescribed by: GISELLE BROWN on 01/22/21 1128 Lamotrigine (Lamotrigine) 100 Mg Tablet, 100 MG PO DAILY, (Reported) Entered as Reported by: ASHLEY ROSSI on 04/09/17 1431 Lisinopril/Hydrochlorothiazide (Lisinopril-Hctz 10-12.5 mg Tab) 1 Each Tablet, 1 EACH PO DAILY, (Reported) Entered as Reported by: ASHLEY ROSSI on 04/09/17 1431 Lorazepam (Lorazepam) 0.5 Mg Tablet, 0.5 MG PO QID PRN for ANXIETY, (Reported) Entered as Reported by: ASHLEY ROSSI on 04/09/17 1431 Metformin HCl (Metformin HCl) 500 Mg Tablet, 500 MG PO BID, (Reported) Entered as Reported by: ASHLEY ROSSI on 04/09/17 143 Omeprazole (Omeprazole) 40 Mg Capsule.dr, 40 MG PO DAILY, (Reported) Entered as Reported by: ASHLEY ROSSI on 04/09/17 143 Potassium Chloride (Potassium Chloride) 10 Meq Tablet.er, 10 MEQ PO DAILY, (Reported) Entered as Reported by: ASHLEY ROSSI on 04/09/17 143 Prednisone (Prednisone) 20 Mg Tab, 40 MG PO DAILY Prescribed by: GISELLE BROWN on 01/22/21 1128 Review of Systems Review of Systems Constitutional: see HPI EENTM: see HPI, nose congestion Respiratory: see HPI, cough Cardiovascular: no symptoms reported Genitourinary: no symptoms reported Musculoskeletal: no symptoms reported Skin: no symptoms reported Psychiatric/Neurological: No Symptoms Reported Hematologic/Lymphatic: No Symptoms Reported Immunological/Allergic: no symptoms reported (GISELLE BROWN APRN) Past Erlhrsc-Kemjkl-Gxpodr Hx Patient Social History Tobacco Use?: No Substance use?: No Alcohol Use?: No Pt feels they are or have been: No (DEMI QUINTANA MD) Immunizations Up To Date Tetanus Booster (TDap): Unknown First/Initial COVID19 Vaccinat: june 2020 Second COVID19 Vaccination Abraham: june 2020 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 (DEMI QUINTANA MD) Seasonal Allergies Seasonal Allergies: No (DEMI QUINTANA MD) Past Medical History Surgery/Hospitalization HX: pmh: htn, high chol, gerd, anxiety sx: hyst, l mastectomy, r tkr Hysterectomy COPD, Pulmonary Fibrosis Currently Using CPAP: No Currently Using BIPAP: No Hypertension Reproductive Disorders: No Female Reproductive Disorders: 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 0.0oz. [id number]; 35.00 BMI Method:Stated (DEMI QUINTANA MD) General Appearance: No Apparent Distress, WD/WN Eyes: Bilateral Eye Normal Inspection, Bilateral Eye PERRL, Bilateral Eye EOMI HEENT: PERRL/EOMI, TMs Normal, Normal ENT Inspection, Pharynx Normal Neck: Full Range of Motion, Normal Inspection Respiratory: Normal Breath Sounds, No Accessory Muscle Use, No Respiratory Distress; No Crackles, No Expiration, No Inspiration, No Pleural Rub, No Stridor, No Wheezing Cardiovascular: Regular Rate, Rhythm, Normal Peripheral Pulses Gastrointestinal: Normal Bowel Sounds, Non Tender, Soft Extremity: Normal Capillary Refill, Normal Inspection Neurologic/Psychiatric: Alert, Oriented x3 Skin: normal color, warm/dry (GISELLE BROWN APRN) Progress/Results/Core Measures Suspected Sepsis SIRS Temperature: Pulse: 118 Respiratory Rate: 20 Laboratory Tests 01/22/21 10:15: Blood Pressure 192 /99 Mean: 130 Laboratory Tests 01/22/21 10:15: (DEMI QUINTANA MD) Results/Orders Lab Results Laboratory Tests Test 01/22/21 10:15 Range/Units White Blood Count 8.3 4.3-11.0 10^3/uL Red Blood Count 4.87 3.80-5.11 10^6/uL Hemoglobin 14.7 11.5-16.0 g/dL Hematocrit 46 35-52 % Mean Corpuscular Volume 95 80-99 fL Mean Corpuscular Hemoglobin 30 25-34 pg Mean Corpuscular Hemoglobin Concent 32 32-36 g/dL Red Cell Distribution Width 11.9 10.0-14.5 % Platelet Count 225 130-400 10^3/uL Mean Platelet Volume 10.1 9.0-12.2 fL Immature Granulocyte % (Auto) 0 % Neutrophils (%) (Auto) 73 42-75 % Lymphocytes (%) (Auto) 16 12-44 % Monocytes (%) (Auto) 10 0-12 % Eosinophils (%) (Auto) 1 0-10 % Basophils (%) (Auto) 0 0-10 % Neutrophils # (Auto) 6.0 1.8-7.8 10^3/uL Lymphocytes # (Auto) 1.3 1.0-4.0 10^3/uL Monocytes # (Auto) 0.8 0.0-1.0 10^3/uL Eosinophils # (Auto) 0.1 0.0-0.3 10^3/uL Basophils # (Auto) 0.0 0.0-0.1 10^3/uL Immature Granulocyte # (Auto) 0.0 0.0-0.1 10^3/uL Prothrombin Time 13.4 12.2-14.7 SEC INR Comment 1.0 0.8-1.4 Activated Partial Thromboplast Time 34 24-35 SEC Sodium Level 140 135-145 MMOL/L Potassium Level 3.9 3.6-5.0 MMOL/L Chloride Level 103 98-107 MMOL/L Carbon Dioxide Level 26 21-32 MMOL/L Anion Gap 11 5-14 MMOL/L Blood Urea Nitrogen 16 7-18 MG/DL Creatinine 0.91 0.60-1.30 MG/DL Estimat Glomerular Filtration Rate 59 BUN/Creatinine Ratio 18 Glucose Level 80 70-105 MG/DL Calcium Level 9.7 8.5-10.1 MG/DL Corrected Calcium 9.8 8.5-10.1 MG/DL Total Bilirubin 0.5 0.1-1.0 MG/DL Aspartate Amino Transf (AST/SGOT) 17 5-34 U/L Alanine Aminotransferase (ALT/SGPT) 21 0-55 U/L Alkaline Phosphatase 96 40-136 U/L Total Protein 7.4 6.4-8.2 GM/DL Albumin 3.9 3.2-4.5 GM/DL Influenza Type A (RT-PCR) Not Detected Not Detecte Influenza Type B (RT-PCR) Not Detected Not Detecte SARS-CoV-2 RNA (RT-PCR) Not Detected Not Detecte (GISELLE BROWN APRN) Medications Given in ED Current Medications Medications Dose Ordered Sig/Ever Route Start Time Stop Time Status Last Admin Dose Admin Lactated Ringer's 1,000 ml @ 0 mls/hr Q0M ONCE IV 01/22/21 10:15 01/22/21 10:16 DC 01/22/21 10:27 0 MLS/HR (GISELLE BROWN APRN) Vital Signs/I&O 01/22/21 01/22/21 09:32 09:32 Temp 36.8 Pulse 118 Resp 20 B/P (MAP) 192/99 (130) Pulse Ox 96 O2 Delivery Room Air (GISELLE BROWN APRN) Vital Signs/I&O Capillary Refill : Less Than 3 Seconds (DEMI QUINTANA MD) Blood Pressure Mean: 130 Departure Impression Primary Impression: Upper respiratory infection Disposition: HOME, SELF-CARE Condition: Stable Departure-Patient Inst. Decision time for Depature: 11:27 (GISELLE BROWN APRN) Referrals: DYLAN DOSS DO (PCP/Family) Primary Care Physician Patient Instructions: Bacterial Upper Respiratory Infection, Adult (DC) Add. Discharge Instructions: 1. Steroids and antibiotics as directed 2. Return to ER for any concerns 3. Follow-up with your doctor next week. All discharge instructions reviewed with patient and/or family. Voiced understanding. Scripts Prednisone (Prednisone) 20 Mg Tab 40 MG PO DAILY, #6 TAB 0 Refills Prov: GISELLE BROWN APRN 01/22/21 Doxycycline Hyclate (Doxycycline Hyclate) 100 Mg Capsule 100 MG PO BID, #14 CAP Prov: GISELLE BROWN APRN 01/22/21 DEMI QUINTANA MD Jan 22, 2021 10:36 GISELLE BROWN APRN Jan 22, 2021 11:28
[2021-01-22 10:43] LABS: ALBUMIN 3.9 GM/DL (3.2-4.5); POTASSIUM 3.9 MMOL/L (3.6-5.0)
[2021-01-22 10:44] LABS: CALCIUM 9.7 MG/DL (8.5-10.1)
[2021-01-22 10:45] LABS: PROTHROMBIN TIME PATIENT 13.4 SEC (12.2-14.7); TOTAL PROTEIN 7.4 GM/DL (6.4-8.2)
[2021-01-22 10:47] LABS: BILIRUBIN,TOTAL 0.5 MG/DL (0.1-1.0)
[2021-01-22 10:49] LABS: CREATININE SERUM 0.91 MG/DL (0.60-1.30)
[2021-01-22] MEDS ORDERED: PRD20T PO (11:28)
[2021-01-22] MEDS ORDERED: DOXY100C5 PO (11:28)
[2021-01-22 11:38] VITALS: BP 188/96
--- NOTE | 2021-01-22 11:44 | Diagnostic Imaging Report ---
PATIENT HISTORY: sepsis. TECHNIQUE: Single frontal view of the chest. COMPARISON: None FINDINGS: The lung volumes are normal. No focal consolidation is seen. No large pleural effusion or pneumothorax is seen. The cardiomediastinal silhouette is normal in size and contour. No acute osseous abnormality is seen. IMPRESSION: No acute pulmonary abnormality seen. Dictated by: Dictated on workstation # [id number]
== END 2021-01-22 11:37 | disposition home or self-care (01) ==
LOC: EDUNIT# 09:19 → ER 09:21
DX: J06.9 Acute upper respiratory infection, unspecified (principal); J44.9 Chronic obstructive pulmonary disease, unspecified; I10 Essential (primary) hypertension; K21.9 Gastro-esophageal reflux disease without esophagitis; F41.9 Anxiety disorder, unspecified; E78.00 Pure hypercholesterolemia, unspecified; Z20.822 Contact with and (suspected) exposure to COVID-19; Z79.899 Other long term (current) drug therapy; Z79.82 Long term (current) use of aspirin
CPT/HCPCS: 36415; 71045; 80053; 85025; 85610; 85730; 87636

== ENCOUNTER 2021-03-05 15:50 | Emergency (ER) | payer MEDICARE ==
[~2021-03-05] VITALS: Ht 157.5 cm; Wt 90.7 kg
[~2021-03-05 15:50] MED LIST changes: +DOXY100C5 PO; +PRD20T PO
[2021-03-05] MEDS ORDERED: TETANUS,DIPTH,PERTUSS P/F (BOOSTRIX) 0.5 ML VIAL IM ONE (16:30)
--- NOTE | 2021-03-05 16:32 | ED Fall/Injury ---
General Chief Complaint: Trauma-Non Activation Stated Complaint: FALL Nursing Triage Note: PT AMB TO [facility] WITH COMPLAINT OF FALL. STATES SHE WAS GOING DOWN BACK STEPS TO GO PLAY WITH [employer]. PT HIT LEFT KNEE AND LEFT EYE. DENIES LOC. PT HAS SWELLING TO LEFT KNEE AND ABOVE LEFT EYE. PT HAS ABRAISION TO LEFT EYE (MAXI WILSON) History of Present Illness Date Seen by Provider: Mar 05, 2021 Time Seen by Provider: 16:18 Initial Comments 80 year old female reports missing step and falling, landing on her left knee and contusion to her left frontal scalp. Superficial abrasions to forehead, no active bleeding. Noted ecchymosis to anterior left knee. Patient's had a previous right TKR. Ice pack to left knee. She denies any other injuries. There was no loss of consciousness. She denies headache, dizziness, seizure activity, nausea or vomiting since the fall. Occurred: just prior to arrival Severity: mild Injuries/Pain Location: face, lower extremity (left knee) Context: tripped Loss of Consciousness: no loss of consciousness Associated Symptoms (Fall): Denies Symptoms; No Confusion, No Dizziness, No Headache, No Lightheadedness, No Neck Pain, No Seizures, No Slurred Speech; Trouble Walking (secondary to left knee pain); No Vision Changes (MAXI WILSON) Allergies and Home Medications Allergies Coded Allergies: Iodinated Contrast- Oral and IV Dye (Verified Allergy, Unknown, 04/09/17) Patient Home Medication List Home Medication List Reviewed: Yes (MAXI WILSON) Aspirin (Aspir 81) 81 Mg Tablet.dr, 81 MG PO DAILY, (Reported) Entered as Reported by: ASHLEY ROSSI on 04/09/17 1431 Atenolol (Atenolol) 100 Mg Tablet, 100 MG PO DAILY, (Reported) Entered as Reported by: ASHLEY ROSSI on 04/09/17 143 Atorvastatin Calcium (Atorvastatin Calcium) 10 Mg Tablet, 10 MG PO HS, (Reported) Entered as Reported by: ASHLEY ROSSI on 04/09/17 1431 Doxycycline Hyclate (Doxycycline Hyclate) 100 Mg Capsule, 100 MG PO BID Prescribed by: GISELLE BROWN on 01/22/21 1128 Lamotrigine (Lamotrigine) 100 Mg Tablet, 100 MG PO DAILY, (Reported) Entered as Reported by: ASHLEY ROSSI on 04/09/17 143 Lisinopril/Hydrochlorothiazide (Lisinopril-Hctz 10-12.5 mg Tab) 1 Each Tablet, 1 EACH PO DAILY, (Reported) Entered as Reported by: ASHLEY ROSSI on 04/09/17 143 Lorazepam (Lorazepam) 0.5 Mg Tablet, 0.5 MG PO QID PRN for ANXIETY, (Reported) Entered as Reported by: ASHLEY ROSSI on 04/09/17 143 Metformin HCl (Metformin HCl) 500 Mg Tablet, 500 MG PO BID, (Reported) Entered as Reported by: ASHLEY ROSSI on 04/09/17 143 Omeprazole (Omeprazole) 40 Mg Capsule.dr, 40 MG PO DAILY, (Reported) Entered as Reported by: ASHLEY ROSSI on 04/09/17 143 Potassium Chloride (Potassium Chloride) 10 Meq Tablet.er, 10 MEQ PO DAILY, (Reported) Entered as Reported by: ASHLEY ROSSI on 04/09/17 143 Prednisone (Prednisone) 20 Mg Tab, 40 MG PO DAILY Prescribed by: GISELLE BROWN on 01/22/21 1128 Walker (Ultra-Light Rollator) 1 Each Each, EACH MC DAILY, (DME) Prescribed by: MAXI WILSON on 03/05/21 1721 Review of Systems Review of Systems Constitutional: no symptoms reported, see HPI Musculoskeletal: see HPI, joint pain (Left knee), joint swelling, muscle pain Skin: see HPI, other (Superficial abrasion left forehead) (MAXI WILSON) All Other Systems Reviewed Negative Unless Noted: Yes (MAXI WILSON) Past Tyckdzd-Hctgly-Jneuhb Hx Patient Social History Tobacco Use?: No Use of E-Cig and/or Vaping dev: No Substance use?: No Alcohol Use?: No Pt feels they are or have been: No (MAXI WILSON) Immunizations Up To Date Tetanus Booster (TDap): Unknown First/Initial COVID19 Vaccinat: june 2020 Second COVID19 Vaccination Abraham: june 2020 (MAXI WILSON) Seasonal Allergies Seasonal Allergies: No (MAXI WILSON) Past Medical History Surgery/Hospitalization HX: pmh: htn, high chol, gerd, anxiety sx: hyst, l mastectomy, r tkr Hysterectomy COPD, Pulmonary Fibrosis Currently Using CPAP: No Currently Using BIPAP: No Hypertension Reproductive Disorders: No Female Reproductive Disorders: Denies 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 0.0oz. 81.644358uk; 36.00 BMI Method:Stated General Appearance: WD/WN, no apparent distress HEENT: PERRL/EOMI, normal ENT inspection, TMs normal, pharynx normal Neck: non-tender, full range of motion, supple, normal inspection Cardiovascular: normal peripheral pulses, regular rate, rhythm Respiratory: chest non-tender, lungs clear, normal breath sounds Gastrointestinal: normal bowel sounds, non tender, soft Extremities: normal capillary refill, other (Left knee with ecchymosis anteriorly, range of motion 0 to 20 degrees. 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, no motor/sensory deficits, alert, normal mood/affect, oriented x 3 (MAXI WILSON) Progress/Results/Core Measures Results/Orders Medications Given in ED Current Medications Medications Dose Ordered Sig/Ever Route Start Time Stop Time Status Last Admin Dose Admin Diphtheria/ Tetanus/Acell Pertussis 0.5 ml ONCE ONCE IM 03/05/21 16:30 03/05/21 16:31 DC 03/05/21 17:06 0.5 ML (BRADLY MOTLEY MD) Vital Signs/I&O 03/05/21 03/05/21 16:02 17:32 Pulse 73 66 Resp 20 18 B/P (MAP) 206/105 (138) 167/96 Pulse Ox 97 100 O2 Delivery Room Air (BRADLY MOTLEY MD) Blood Pressure Mean: 138 Progress Progress Note : Time: 16:18 Progress Note Patient seen and evaluated, will obtain x-ray of the left knee and CT of the head. Patient request Tylenol for pain denies any other needs at this time. 1700 CT and x-ray show no acute findings. 1715 Kevin wrap applied to the left knee. Discharge instructions and return precautions reviewed. All questions answered (MAXI WILSON) Diagnostic Imaging Diagonstic Imaging: Xray Plain Films/CT/US/NM/MRI: knee Comments NAME: CORDELIA MORRIS [employer] [facility] REC#: [id number] PT STATUS: REG ER : 1940 PHYSICIAN: MXAI WILSON ADMIT DATE: 03/05/21/ER Signed Date of Exam:03/05/21 KNEE, LEFT, 3 VIEWS CLINICAL HISTORY: Fall. Left knee pain. COMPARISON: None. TECHNIQUE: Three views of the left knee. FINDINGS: There is no acute fracture or dislocation of the left knee. Alignment is anatomic. Mild degenerative changes are seen in the left knee with marginal osteophytes and joint space narrowing. Small joint effusion is seen in the left knee. IMPRESSION: 1. No acute fracture or dislocation in the left knee. 2. Mild osteoarthritis in the left knee. 3. Small left knee joint effusion. Dictated by: Dictated on workstation # [id number] Dict: 03/05/21 165 Trans: 03/05/211700 [facility] [id number] Interpreted by: ITRSO MEDEL DO Electronically signed by: TIRSO MEDEL DO 03/05/211700 Reviewed: Reviewed by Oh Diagonstic Imaging: CT Plain Films/CT/US/NM/MRI: head Comments NAME: CORDELIA MORRIS [employer] [facility] REC#: [id number] PT STATUS: REG ER : 1940 PHYSICIAN: MAXI WILSON ADMIT DATE: 03/05/21/ER Signed Date of Exam:03/05/21 CT HEAD WO EXAMINATION: CT head without contrast. TECHNIQUE: Multiple contiguous axial images were obtained through the brain without the use of intravenous contrast. All CT scans use one or more of the following dose optimizing techniques: automated exposure control, MA and/or KvP adjustment based on patient size and exam type or iterative reconstruction. HISTORY: Fall. Scalp contusion. Head pain. COMPARISON: 09/08/2007. FINDINGS: No large acute territorial ischemia, mass, or hemorrhage. No midline shift or mass effect. The ventricles, cortical sulci, and basilar cisterns are patent and unremarkable. The orbits are normal. Paranasal sinuses are normal. Mastoid air cells are clear. No soft tissue abnormality is seen. No osseus lesion or fracture is seen. IMPRESSION: No large acute territorial ischemia, mass, or hemorrhage. Dictated by: Dictated on workstation # [id number] Dict: 03/05/211640 Trans: 03/05/211646 [facility] [id number] Interpreted by: TIRSO MEDEL DO Electronically signed by: TIRSO MEDEL DO 03/05/211646 Reviewed: Reviewed by Me (MAXI WILSON) Departure Impression Primary Impression: Fall at home Qualified Codes: W19.XXXA - Unspecified fall, initial encounter; Y92.009 - Unspecified place in unspecified non-institutional (private) residence as the place of occurrence of the external cause Additional Impressions: Contusion of left knee Qualified Codes: S80.02XA - Contusion of left knee, initial encounter Contusion of forehead Qualified Codes: S00.83XA - Contusion of other part of head, initial encounter Disposition: HOME, SELF-CARE Condition: Stable Departure-Patient Inst. Decision time for Depature: 17:05 (MAXI WILSON) Referrals: DYLAN DOSS DO (PCP/Family) Primary Care Physician Patient Instructions: Contusion (DC) Add. Discharge Instructions: Ice to left forehead and left knee 20 minutes every 2 hours while awake. Walker or cane, weight bearing as tolerated, left knee. You can obtain a walker tomorrow at [facility]. Alternate between Tylenol 650 mg and ibuprofen 600 mg every 4 hours for pain. Follow-up with your primary care provider if symptoms are not improving or worsen. Take your blood pressure medicine from this morning when you return home. Return to the emergency department for new, urgent healthcare needs. All discharge instructions reviewed with patient and/or family. Voiced understanding. Scripts Walker (Ultra-Light Rollator) 1 Each Each EACH MC DAILY for Pain, #1 0 Refills Prov: MAXI WILSON 03/05/21 ATTENDING PHYSICIAN NOTE: I was physically present as attending physician in the emergency department during the care of this patient, but I was not directly involved in the decision making or delivery of care for this patient. (BRADLY MOTLEY MD) Copy Copies To 1: DYLAN DOSS AMY ARNP Mar 05, 2021 16:32 BRADLY MOTLEY MD Mar 05, 2021 18:45
--- NOTE | 2021-03-05 16:47 | Diagnostic Imaging Report ---
EXAMINATION: CT head without contrast. TECHNIQUE: Multiple contiguous axial images were obtained through the brain without the use of intravenous contrast. All CT scans use one or more of the following dose optimizing techniques: automated exposure control, MA and/or KvP adjustment based on patient size and exam type or iterative reconstruction. HISTORY: Fall. Scalp contusion. Head pain. COMPARISON: 09/08/2007. FINDINGS: No large acute territorial ischemia, mass, or hemorrhage. No midline shift or mass effect. The ventricles, cortical sulci, and basilar cisterns are patent and unremarkable. The orbits are normal. Paranasal sinuses are normal. Mastoid air cells are clear. No soft tissue abnormality is seen. No osseus lesion or fracture is seen. IMPRESSION: No large acute territorial ischemia, mass, or hemorrhage. Dictated by: Dictated on workstation # [id number]
--- NOTE | 2021-03-05 16:57 | Diagnostic Imaging Report ---
CLINICAL HISTORY: Fall. Left knee pain. COMPARISON: None. TECHNIQUE: Three views of the left knee. FINDINGS: There is no acute fracture or dislocation of the left knee. Alignment is anatomic. Mild degenerative changes are seen in the left knee with marginal osteophytes and joint space narrowing. Small joint effusion is seen in the left knee. IMPRESSION: 1. No acute fracture or dislocation in the left knee. 2. Mild osteoarthritis in the left knee. 3. Small left knee joint effusion. Dictated by: Dictated on workstation # [id number]
[2021-03-05] MEDS ORDERED: APAP 325 MG/10.15 ML LIQ (TYLENOL) UDC PO STA (16:59)
[2021-03-05] MEDS ORDERED: ACETAMINOPHEN 325 MG TABLET PO STA (17:02)
[2021-03-05] MEDS ORDERED: ACETAMINOPHEN 325 MG TABLET ONE (17:03)
[2021-03-05] MEDS ORDERED: WALK1EAC23 MC (17:21)
[2021-03-05 17:32] VITALS: BP 167/96
== END 2021-03-05 17:32 | disposition home or self-care (01) ==
LOC: EDUNIT# 15:50 → ER 15:51
DX: S80.02XA Contusion of left knee, initial encounter (principal); S00.83XA Contusion of other part of head, initial encounter; J44.9 Chronic obstructive pulmonary disease, unspecified; I10 Essential (primary) hypertension; K21.9 Gastro-esophageal reflux disease without esophagitis; E78.00 Pure hypercholesterolemia, unspecified; F41.9 Anxiety disorder, unspecified; Z23 Encounter for immunization; Z79.82 Long term (current) use of aspirin; Z79.899 Other long term (current) drug therapy; W10.8XXA Fall (on) (from) other stairs and steps, initial encounter; Y92.009 Unspecified place in unspecified non-institutional (private) residence as the place of occurrence of the external cause
CPT/HCPCS: 70450; 73562; 90471; 90715

== ENCOUNTER → 2021-03-20 | Outpatient (CLI) | payer MEDICARE ==
[~2021-03-20] MED LIST changes: +WALK1EAC23 MC
[2021-03-20 15:20] LABS: HEMATOCRIT 44 % (35-52); HEMOGLOBIN 13.8 g/dL (11.5-16.0); MEAN CORPUSCULAR HEMOGLOBIN 30 pg (25-34); MEAN CORPUSCULAR HGB CONC 32 g/dL (32-36); MEAN CORPUSCULAR VOLUME 96 fL (80-99); PLATELET COUNT 230 10^3/uL (130-400); WHITE BLOOD COUNT 5.6 10^3/uL (4.3-11.0)
--- NOTE | 2021-03-20 15:44 | Diagnostic Imaging Report ---
PROCEDURE: US left lower extremity venous. TECHNIQUE: Multiple real-time grayscale images were obtained over the left lower extremity in various projections. Additional duplex Doppler and color Doppler images were also obtained. INDICATION: Left leg pain and swelling. FINDINGS: There is normal color flow throughout the left lower extremity venous system. Calf compression shows normal augmentation of flow at the popliteal level. No evidence of popliteal cyst. IMPRESSION: Negative left lower extremity venous ultrasound for thrombus. Dictated by: Dictated on workstation # [id number]
[2021-03-20 15:45] LABS: ALBUMIN 3.9 GM/DL (3.2-4.5); POTASSIUM 4.4 MMOL/L (3.6-5.0)
[2021-03-20 15:46] LABS: CALCIUM 9.3 MG/DL (8.5-10.1)
[2021-03-20 15:48] LABS: TOTAL PROTEIN 7.1 GM/DL (6.4-8.2)
[2021-03-20 15:49] LABS: BILIRUBIN,TOTAL 0.5 MG/DL (0.1-1.0)
[2021-03-20 15:51] LABS: CREATININE SERUM 0.84 MG/DL (0.60-1.30)
== END ==
LOC: RAD 14:30
PROVIDERS: ATTEND Family Medicine
DX: M79.605 Pain in left leg (principal); M79.89 Other specified soft tissue disorders; W19.XXXA Unspecified fall, initial encounter
CPT/HCPCS: 36415; 80053; 85027; 85379; 86141

== ENCOUNTER 2021-05-16 13:30 | Outpatient (CLI) | payer MEDICARE ==
[~2021-05-16] VITALS: Ht 160 cm; Wt 90.7 kg
[~2021-05-16 13:30] MED LIST changes: -LISI1TAB29 PO; +LISI1TAB44 PO
[2021-05-16 13:32] VITALS: BP 193/102
[2021-05-16] MEDS ORDERED: EPINEPHrine INJECTION 1 MG/ML AMP IM PRN (13:45)
[2021-05-16] MEDS ORDERED: ACETAMINOPHEN 500 MG TAB (TYLENOL) PO PRN (13:45)
[2021-05-16] MEDS ORDERED: CASIRIVIMAB/IMDEVIMAB 1,200 MG in NS (IVPB) 50 ML IV ONE (13:45)
[2021-05-16] MEDS ORDERED: diphenhydrAMINE 50 MG/ML INJ (BENADRYL) IV PRN (13:45)
[2021-05-16] MEDS ORDERED: ONDANSETRON 4 MG/2 ML (SDV) Z0FRAN IV PRN (13:45)
[2021-05-16 14:31] VITALS: BP 172/81
== END 2021-05-16 14:43 ==
LOC: INFUSION 13:30
PROVIDERS: ATTEND Family Medicine
DX: U07.1 COVID-19 (principal)

== ENCOUNTER → 2021-09-20 | Outpatient (CLI) | payer MEDICARE ==
--- NOTE | 2021-09-20 13:29 | Diagnostic Imaging Report ---
INDICATION: Routine screening. Comparison is made with prior mammogram from 09/19/2020 and 09/18/2019. 2-D and 3-D unilateral right screening mammography was performed with CAD. CAD is utilized. The current study was also evaluated with a Computer Aided Detection (CAD) system. Scattered fibroglandular densities in the right breast are noted. The parenchymal pattern is stable. No mass or malignant-appearing microcalcifications are seen. Right axilla is unremarkable. IMPRESSION: BI-RADS Category 1 No mammographic features suspicious for malignancy are identified. ACR BI-RADS Category 1: Negative. Result letter will be mailed to the patient. Note: At least 10% of breast cancer is not imaged by mammography. Dictated by: Dictated on workstation # [id number]
== END ==
LOC: RAD 09:34
PROVIDERS: ATTEND Family Medicine
DX: Z12.31 Encounter for screening mammogram for malignant neoplasm of breast (principal)
CPT/HCPCS: 77063

== ENCOUNTER 2021-09-26 12:37 | Emergency (ER) | payer MEDICARE ==
[~2021-09-26] VITALS: Ht 160 cm; Wt 90.7 kg
--- NOTE | 2021-09-26 13:26 | ED Upper Extremity ---
General Chief Complaint: Upper Extremity Stated Complaint: FELL, R HAND PAIN, R KNEE GIVES OUT Nursing Triage Note: PT PRESENTS TO ED VIA POV FROM HOME WITH COMPLAINTS OF FALL TODAY AROUND 1100 WHEN HER R KNEE GAVE OUT. PT REPORTS SHE LANDED ON THE SIDE WALK. PT DENIES LOC. PT REPORTS R HAND/WRIST AND R KNEE PAIN. Source: patient Exam Limitations: no limitations History of Present Illness Date Seen by Provider: September 26, 2021 Time Seen by Provider: 13:13 Initial Comments This is an 80-year-old female who presented to the ER via POV with complaints of right hand and knee pain after falling just prior to arrival. States that she was getting out of her truck and was attempting to step onto the curb when her right knee "gave out" and she fell towards her right side. States that she injured her right arm and hit the right side of her cheek on the cement ground. She did not lose consciousness. She does not have any headache or neck pain. Allergies and Home Medications Allergies Coded Allergies: Iodinated Contrast Media (Verified Allergy, Unknown, 04/09/17) Patient Home Medication List Aspirin (Aspir 81) 81 Mg Tablet.dr, 81 MG PO DAILY, (Reported) Entered as Reported by: ASHLEY ROSSI on 04/09/17 1431 Atenolol (Atenolol) 100 Mg Tablet, 100 MG PO DAILY, (Reported) Entered as Reported by: ASHLEY ROSSI on 04/09/17 1431 Atorvastatin Calcium (Atorvastatin Calcium) 10 Mg Tablet, 10 MG PO HS, (Report ed) Entered as Reported by: ASHLEY ROSSI on 04/09/17 1431 Doxycycline Hyclate (Doxycycline Hyclate) 100 Mg Capsule, 100 MG PO BID Prescribed by: GISELLE BROWN on 01/22/21 1128 Lamotrigine (Lamotrigine) 100 Mg Tablet, 100 MG PO DAILY, (Reported) Entered as Reported by: ASHLEY ROSSI on 04/09/17 1431 Lisinopril/Hydrochlorothiazide (Lisinopril-Hctz 10-12.5 mg Tab) 1 Each Tablet, 1 EACH PO DAILY, (Reported) Entered as Reported by: ASHLEY ROSSI on 04/09/17 1431 Lorazepam (Lorazepam) 0.5 Mg Tablet, 0.5 MG PO QID PRN for ANXIETY, (Reported) Entered as Reported by: ASHLEY ROSSI on 04/09/17 1431 Metformin HCl (Metformin HCl) 500 Mg Tablet, 500 MG PO BID, (Reported) Entered as Reported by: ASHLEY ROSSI on 04/09/17 1431 Omeprazole (Omeprazole) 40 Mg Capsule.dr, 40 MG PO DAILY, (Reported) Entered as Reported by: ASHLEY ROSSI on 04/09/17 1431 Potassium Chloride (Potassium Chloride) 10 Meq Tablet.er, 10 MEQ PO DAILY, (Reported) Entered as Reported by: ASHLEY ROSSI on 04/09/17 1431 Prednisone (Prednisone) 20 Mg Tab, 40 MG PO DAILY Prescribed by: GISELLE BROWN on 01/22/21 1128 Walker (Ultra-Light Rollator) 1 Each Each, EACH MC DAILY, (DME) Prescribed by: MAXI WILSON on 03/05/21 1721 Past Vpunshz-Gonyvv-Saxafd Hx Patient Social History Tobacco Use?: No Substance use?: No Alcohol Use?: No Pt feels they are or have been: No Immunizations Up To Date Tetanus Booster (TDap): Unknown First/Initial COVID19 Vaccinat: june 2020 Second COVID19 Vaccination Abraham: june 2020 Third COVID19 Vaccination Date: june 2020 Seasonal Allergies Seasonal Allergies: No Past Medical History Surgery/Hospitalization HX: pmh: htn, high chol, gerd, anxiety sx: hyst, l mastectomy, r tkr Hysterectomy COPD, Pulmonary Fibrosis Currently Using CPAP: No Currently Using BIPAP: No Hypertension Reproductive Disorders: No Female Reproductive Disorders: Denies 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 0.0oz. [id number]; 35.00 BMI Method:Stated Progress/Results/Core Measures Results/Orders My Orders Orders - CAN JI DIRECTOR OF VOCATIONAL TRAINING Hand, Right, 3 Views (09/26/21 13:23) Forearm, Right, 2 Views (09/26/21 13:23) Humerus, Right, 2 Views (09/26/21 13:23) Knee, Right, 3 Views (09/26/21 13:23) Chest 1 View, Ap/Pa Only (09/26/21 13:23) Vital Signs/I&O 09/26/21 13:05 Pulse 69 Resp 18 B/P (MAP) 164/89 (114) Pulse Ox 96 Blood Pressure Mean: 114 Departure Impression Primary Impression: Fall on same level Additional Impression: Knee pain Disposition: 01 HOME, SELF-CARE Condition: Improved Departure-Patient Inst. Decision time for Depature: 15:46 Referrals: DYLAN DOSS DO (PCP/Family) Primary Care Physician Patient Instructions: Knee Pain ED Add. Discharge Instructions: Plan: 1. Use a stable walker whenever you are ambulating this will help prevent you from falling. 2. Use the knee brace to help stabilize your knee while you are walking, you can take this off at bedtime. 3. Follow-up with your primary care provider for your chronic knee pain and instability. 4. You can take Tylenol or ibuprofen as needed for pain per package. 5. Return to the ER for any new, concerning, worsening symptoms. All discharge instructions reviewed with patient and/or family. Voiced understanding. CAN JI DIRECTOR OF VOCATIONAL TRAINING September 26, 2021 13:25
--- NOTE | 2021-09-26 13:53 | Diagnostic Imaging Report ---
INDICATION: Fall with right forearm injury and pain. TECHNIQUE: AP and lateral views of the right forearm were obtained. FINDINGS: There is no acute fracture or malalignment identified. A corticated ossific fragment is seen adjacent to the ulnar styloid process which is likely the result of old injury. No lytic or sclerotic lesion is appreciated. IMPRESSION: No acute right forearm abnormality is identified. Dictated by: Dictated on workstation # [id number]
--- NOTE | 2021-09-26 13:54 | Diagnostic Imaging Report ---
INDICATION: Fall with right knee injury and pain. TECHNIQUE: AP, oblique, and lateral views of the right knee were obtained. COMPARISON: 09/16/2013. FINDINGS: There are stable post operative findings in the right knee related to total arthroplasty. No acute fracture or malalignment is identified. There is no evidence of significant joint fluid. IMPRESSION: Stable post operative findings in the right knee without acute abnormality detected. Dictated by: Dictated on workstation # [id number]
--- NOTE | 2021-09-26 14:44 | Diagnostic Imaging Report ---
INDICATION: Fall. TIME OF EXAM: 1:39 p.m. Correlation is made with prior chest from 01/22/2021. FINDINGS: The heart size is normal. The pulmonary vascularity is unremarkable. The lungs are clear. No infiltrate, effusion or pneumothorax is detected. IMPRESSION: No acute cardiopulmonary process is detected. Dictated by: Dictated on workstation # [id number]
--- NOTE | 2021-09-26 14:44 | Diagnostic Imaging Report ---
CLINICAL HISTORY: Fall. Right arm pain. COMPARISON: None. TECHNIQUE: Two views of the right humerus. FINDINGS: There is no acute fracture or dislocation of the right humerus. Alignment is anatomic. The imaged joint spaces are preserved. No focal osseous lesions are seen. IMPRESSION: 1. No acute fracture or dislocation is seen in the right humerus. Dictated by: Dictated on workstation # [id number]
--- NOTE | 2021-09-26 14:44 | Diagnostic Imaging Report ---
INDICATION: Fall with right hand pain. TIME OF EXAM: 1:45 PM. TECHNIQUE: Three views of the right hand were obtained. FINDINGS: The distal radius and ulna appear intact. There is an ununited fracture of the ulnar styloid which appears chronic. The carpus does show 1st CMC joint degenerative changes. The metacarpals and phalanges are intact. No acute fractures are seen. IMPRESSION: No acute abnormality is detected. Dictated by: Dictated on workstation # [id number]
[2021-09-26 16:13] VITALS: BP 162/84
== END 2021-09-26 16:13 | disposition home or self-care (01) ==
LOC: EDUNIT# 12:37 → ER 12:39
DX: M25.561 Pain in right knee (principal); M79.641 Pain in right hand; W18.30XA Fall on same level, unspecified, initial encounter; Y92.480 Sidewalk as the place of occurrence of the external cause
CPT/HCPCS: 71045; 73060; 73090; 73130; 73562; 99281

== ENCOUNTER 2021-12-03 11:20 | Observation (INO) | payer MEDICARE ==
[~2021-12-03] VITALS: Ht 160 cm; Wt 92.4 kg
--- NOTE | 2021-12-03 11:44 | ED Cough/URI ---
General Chief Complaint: COVID19 Suspect/Confirmed Stated Complaint: VARGAS,SORE THROAT, CONGESTION,CHILLS,FEVER Source: patient Exam Limitations: no limitations History of Present Illness Date Seen by Provider: Dec 03, 2021 Time Seen by Provider: 11:42 Initial Comments Patient is a 81-year-old female with a history of hypertension who presents ED with flulike symptoms. Symptoms started last . She reports dull head pain behind her eyes since . Has been constant without increase intensity and without blurry vision, unilateral weakness or sensory changes. She reports nausea without vomiting. She reports a dry cough. She reports some abdominal discomfort near her right sided abdomen. She also reports some non- specific chest pain described as dull and intermittent with a cough. Patient states she felt short of breath with walking. Denies of any significant leg swelling . Denies wheezing, vomiting or diarrhea. Decreased appetite at home. She states she had COVID back in April. Up-to-date on her COVID boosters. Denies of any urinary symptoms such as pain with urination, decreased urine output. Associated fever and chills. No one else at home with similar symptoms Allergies and Home Medications Allergies Coded Allergies: Iodinated Contrast Media (Verified Allergy, Unknown, 04/09/17) Patient Home Medication List Home Medication List Reviewed: Yes Aspirin (Aspir 81) 81 Mg Tablet.dr, 81 MG PO DAILY, (Reported) Entered as Reported by: ASHLEY ROSSI on 04/09/171430 Last Action: Continued Atenolol (Atenolol) 100 Mg Tablet, 100 MG PO DAILY, (Reported) Entered as Reported by: ASHLEY ROSSI on 04/09/171430 Last Action: Converted Atorvastatin Calcium (Atorvastatin Calcium) 10 Mg Tablet, 10 MG PO HS, (Reported) Entered as Reported by: ASHLEY ROSSI on 04/09/171430 Last Action: Continued Doxycycline Hyclate (Doxycycline Hyclate) 100 Mg Capsule, 100 MG PO BID Prescribed by: GISELLE BROWN on 01/22/21 1128 Lamotrigine (Lamotrigine) 100 Mg Tablet, 100 MG PO DAILY, (Reported) Entered as Reported by: ASHLEY ROSSI on 04/09/171430 Lisinopril/Hydrochlorothiazide (Lisinopril-Hctz 10-12.5 mg Tab) 1 Each Tablet, 1 EACH PO DAILY, (Reported) Entered as Reported by: ASHLEY ROSSI on 04/09/17 1431 Lorazepam (Lorazepam) 0.5 Mg Tablet, 0.5 MG PO QID PRN for ANXIETY, (Reported) Entered as Reported by: ASHLEY ROSSI on 04/09/17 1431 Metformin HCl (Metformin HCl) 500 Mg Tablet, 500 MG PO BID, (Reported) Entered as Reported by: ASHLEY ROSSI on 04/09/17 1431 Omeprazole (Omeprazole) 40 Mg Capsule.dr, 40 MG PO DAILY, (Reported) Entered as Reported by: ASHLEY ROSSI on 04/09/17 1431 Potassium Chloride (Potassium Chloride) 10 Meq Tablet.er, 10 MEQ PO DAILY, (Reported) Entered as Reported by: ASHLEY ROSSI on 04/09/17 1431 Prednisone (Prednisone) 20 Mg Tab, 40 MG PO DAILY Prescribed by: GISELLE BROWN on 01/22/21 1128 Walker (Ultra-Light Rollator) 1 Each Each, EACH MC DAILY, (DME) Prescribed by: MAXI WILSON on 03/05/21 1721 Review of Systems Review of Systems Constitutional: chills, malaise, weakness EENTM: No ear pain, No blurred vision, No double vision Respiratory: cough, short of breath Cardiovascular: chest pain Gastrointestinal: abdominal pain; No diarrhea; nausea; No vomiting Genitourinary: No decreased output, No discharge Musculoskeletal: No back pain, No joint pain Skin: No change in color, No change in hair/nails All Other Systems Reviewed Negative Unless Noted: Yes Past Naewjic-Jjpwci-Jbyztm Hx Immunizations Up To Date Tetanus Booster (TDap): Unknown First/Initial COVID19 Vaccinat: june 2020 Second COVID19 Vaccination Abraham: june 2020 Third COVID19 Vaccination Date: june 2020 Seasonal Allergies Seasonal Allergies: No Past Medical History Surgery/Hospitalization HX: pmh: htn, high chol, gerd, anxiety sx: hyst, l mastectomy, r tkr Hysterectomy COPD, Pulmonary Fibrosis Currently Using CPAP: No Currently Using BIPAP: No Hypertension Reproductive Disorders: No Female 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 0.0oz. [id number]; 35.00 BMI Method:Stated General Appearance: WD/WN, no apparent distress Eyes: Bilateral Eye Normal Inspection, Bilateral Eye PERRL, Bilateral Eye EOMI HEENT: PERRL/EOMI, normal ENT inspection, TMs normal, pharynx normal Neck: non-tender, full range of motion, supple, normal inspection Respiratory: chest non-tender, lungs clear, normal breath sounds, no respiratory distress, no accessory muscle use Cardiovascular: regular rate, rhythm, no edema, no gallop Gastrointestinal: normal bowel sounds, non tender, soft Extremities: normal range of motion, non-tender, normal inspection, no pedal edema Neurologic/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: 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 as tested, no motor/sensory deficits, alert, normal mood/affect, oriented x 3 Skin: normal color, warm/dry Progress/Results/Core Measures Suspected Sepsis SIRS Temperature: Pulse: Respiratory Rate: Laboratory Tests 12/03/21 11:50: White Blood Count 8.5 Blood Pressure / Mean: Laboratory Tests 12/03/21 11:50: Creatinine 0.88, Platelet Count 197, Total Bilirubin 0.5 Results/Orders Lab Results Laboratory Tests Test 12/03/21 11:35 12/03/21 11:50 12/03/21 12:19 Range/Units Influenza Type A (RT-PCR) Not Detected Not Detecte Influenza Type B (RT-PCR) Not Detected Not Detecte SARS-CoV-2 RNA (RT-PCR) Not Detected Not Detecte White Blood Count 8.5 4.3-11.0 10^3/uL Red Blood Count 4.76 3.80-5.11 10^6/uL Hemoglobin 14.5 11.5-16.0 g/dL Hematocrit 45 35-52 % Mean Corpuscular Volume 94 80-99 fL Mean Corpuscular Hemoglobin 31 25-34 pg Mean Corpuscular Hemoglobin Concent 32 32-36 g/dL Red Cell Distribution Width 12.3 10.0-14.5 % Platelet Count 197 130-400 10^3/uL Mean Platelet Volume 10.2 9.0-12.2 fL Immature Granulocyte % (Auto) 0 % Neutrophils (%) (Auto) 76 H 42-75 % Lymphocytes (%) (Auto) 13 12-44 % Monocytes (%) (Auto) 11 0-12 % Eosinophils (%) (Auto) 0 0-10 % Basophils (%) (Auto) 0 0-10 % Neutrophils # (Auto) 6.5 1.8-7.8 10^3/uL Lymphocytes # (Auto) 1.1 1.0-4.0 10^3/uL Monocytes # (Auto) 0.9 0.0-1.0 10^3/uL Eosinophils # (Auto) 0.0 0.0-0.3 10^3/uL Basophils # (Auto) 0.0 0.0-0.1 10^3/uL Immature Granulocyte # (Auto) 0.0 0.0-0.1 10^3/uL Sodium Level 141 135-145 MMOL/L Potassium Level 3.6 3.6-5.0 MMOL/L Chloride Level 106 98-107 MMOL/L Carbon Dioxide Level 24 21-32 MMOL/L Anion Gap 11 5-14 MMOL/L Blood Urea Nitrogen 15 7-18 MG/DL Creatinine 0.88 0.60-1.30 MG/DL Estimat Glomerular Filtration Rate 66 BUN/Creatinine Ratio 17 Glucose Level 83 70-105 MG/DL Calcium Level 9.4 8.5-10.1 MG/DL Corrected Calcium 9.6 8.5-10.1 MG/DL Total Bilirubin 0.5 0.1-1.0 MG/DL Aspartate Amino Transf (AST/SGOT) 14 5-34 U/L Alanine Aminotransferase (ALT/SGPT) 19 0-55 U/L Alkaline Phosphatase 89 40-136 U/L Troponin I 0.047 H <0.028 NG/ML B-Type Natriuretic Peptide 287.3 H <100.0 PG/ML Total Protein 7.0 6.4-8.2 GM/DL Albumin 3.8 3.2-4.5 GM/DL Lipase 25 8-78 U/L Urine Color YELLOW Urine Clarity SL CLOUDY Urine pH 6.5 5-9 Urine Specific [place] 1.020 1.016-1.022 Urine Protein 2+ H NEGATIVE Urine Glucose (UA) NEGATIVE NEGATIVE Urine Ketones TRACE H NEGATIVE Urine Nitrite NEGATIVE NEGATIVE Urine Bilirubin 1+ H NEGATIVE Urine Urobilinogen 4.0 < = 1.0 MG/DL Urine Leukocyte Esterase 2+ H NEGATIVE Urine RBC (Auto) 1+ H NEGATIVE Urine RBC 2-5 H /HPF Urine WBC 5-10 H /HPF Urine Squamous Epithelial Cells 5-10 /HPF Urine Crystals NONE /LPF Urine Bacteria MODERATE H /HPF Urine Casts PRESENT /LPF Urine Hyaline Casts 10-25 H /LPF Urine Mucus MODERATE H /LPF Urine Culture Indicated YES My Orders Orders - DAVID HERNÁNDEZ PA Covid 19 Inhouse Test (12/03/21 11:22) Influenza A And B By Pcr (12/03/21 11:22) Cbc With Automated Diff (12/03/21 11:40) Comprehensive Metabolic Panel (12/03/21 11:40) Lipase (12/03/21 11:40) Troponin I Jeffrey (12/03/21 11:40) Bnp Jeffrey (12/03/21 11:40) Ekg Tracing (12/03/21 11:40) Chest 1 View, Ap/Pa Only (12/03/21 11:40) Urinalysis (12/03/21 11:40) Acetaminophen Tablet (Tylenol Tablet) (12/03/21 11:45) Urine Culture (12/03/21 12:19) Aspirin Chewable Tablet (Baby Aspirin Ch (12/03/21 12:45) Enoxaparin Injection (Lovenox Injection) (12/03/21 13:15) Iv/Invasive Line Insertion .IV start (12/03/21 13:05) Ceftriaxone 1 Gm Pre-Mix (Rocephin 1 Gm (12/03/21 13:06) Ed Admission (Communication) (12/03/21 13:09) Medications Given in ED Current Medications Medications Dose Ordered Sig/Ever Route Start Time Stop Time Status Last Admin Dose Admin Acetaminophen 1,000 mg ONCE ONCE PO 12/03/21 11:45 12/03/21 11:46 DC 12/03/21 11:59 1,000 MG Aspirin 324 mg ONCE ONCE PO 12/03/21 12:45 12/03/21 12:46 DC 12/03/21 12:54 324 MG Vital Signs/I&O 12/03/21 12/03/21 11:31 11:59 Temp 36.7 36.7 Pulse 70 Resp 20 B/P (MAP) 200/82 (121) Pulse Ox 96 O2 Delivery Room Air Capillary Refill : Departure Communication (PCP) Patient EKG showed normal sinus rhythm. She had a slight increase in her troponin and BNP. Nonspecific chest pain but does report some shortness of breath with ambulation. Chest x-ray showed cardiomegaly without evidence of consolidation or pneumonia. No significant leg swelling. Normal white blood count, kidney function, liver function. Urinalysis was concerning for UTI. Was given aspirin. She is currently on atenolol. She was hypertensive but this improved without intervention. She really did not have any severe tenderness on palpation of the abdomen. She did report some right-sided abdominal pain so CT abdomen pelvis was ordered secondary to not having ultrasound at this time. She is allergic to contrast so this was performed without. CT scan was unremarkable. Nausea without vomiting or diarrhea. Concerning for the NSTEMI. Patient was discussed with Dr. Shukla who recommends 1 dose of Lovenox and trend troponin. Does not appear to be acute coronary syndrome however due to her complaints recommend further evaluation. No known history of coronary artery disease or coronary stents according to patient Impression Primary Impression: NSTEMI (non-ST elevated myocardial infarction) Disposition: ADMITTED INPATIENT Condition: Stable Admissions Decision to Admit Reason: Admit from ER (General) Decision to Admit/Date: Dec 03, 2021 Time/Decision to Admit Time: 13:10 Departure-Patient Inst. Referrals: DYLAN DOSS DO (PCP/Family) Primary Care Physician DAVID HERNÁNDEZ Dec 03, 2021 11:44
[2021-12-03] MEDS ORDERED: ACETAMINOPHEN 500 MG TAB (TYLENOL) PO ONE (11:45)
[2021-12-03 12:00] LABS: BASOPHILS % (AUTO) 0 % (0-10); EOSINOPHILS % (AUTO) 0 % (0-10); HEMATOCRIT 45 % (35-52); HEMOGLOBIN 14.5 g/dL (11.5-16.0); LYMPHOCYTES # (AUTO) 1.1 10^3/uL (1.0-4.0); LYMPHOCYTES % (AUTO) 13 % (12-44); MEAN CORPUSCULAR HEMOGLOBIN 31 pg (25-34); MEAN CORPUSCULAR HGB CONC 32 g/dL (32-36); MEAN CORPUSCULAR VOLUME 94 fL (80-99); MEAN PLATELET VOLUME 10.2 fL (9.0-12.2); MONOCYTES # (AUTO) 0.9 10^3/uL (0.0-1.0); MONOCYTES % (AUTO) 11 % (0-12); NEUTROPHILS # (AUTO) 6.5 10^3/uL (1.8-7.8); NEUTROPHILS % (AUTO) 76 % (42-75); PLATELET COUNT 197 10^3/uL (130-400); WHITE BLOOD COUNT 8.5 10^3/uL (4.3-11.0)
[2021-12-03 12:10] LABS: ALBUMIN 3.8 GM/DL (3.2-4.5); POTASSIUM 3.6 MMOL/L (3.6-5.0)
[2021-12-03 12:11] LABS: CALCIUM 9.4 MG/DL (8.5-10.1)
[2021-12-03 12:14] LABS: BILIRUBIN,TOTAL 0.5 MG/DL (0.1-1.0)
[2021-12-03 12:16] LABS: CREATININE SERUM 0.88 MG/DL (0.60-1.30)
[2021-12-03 12:25] LABS: CLARITY,URINE SL CLOUDY; COLOR,URINE YELLOW; GLUCOSE, URINE (UA) NEGATIVE (NEGATIVE); KETONES,URINE TRACE (NEGATIVE); LEUKOCYTE ESTERASE ,URINE 2+ (NEGATIVE); NITRITE,URINE NEGATIVE (NEGATIVE); PH,URINE 6.5 (5-9); PROTEIN,URINE 2+ (NEGATIVE)
--- NOTE | 2021-12-03 12:26 | Diagnostic Imaging Report ---
INDICATION: Cough. COMPARISON is made with prior exam of 09/26/2021 FINDINGS: There is mild cardiomegaly. There is left basilar atelectasis and/or pneumonitis. There is no pleural effusion or pneumothorax. The mediastinum is unremarkable IMPRESSION: Cardiomegaly with minimal left basilar subsegmental atelectasis and/or pneumonitis. Dictated by: Dictated on workstation # [id number]
[2021-12-03 12:41] LABS: BACTERIA,URINE MODERATE /HPF
[2021-12-03] MEDS ORDERED: ASPIRIN 81 MG CHEW (CHILDREN'S ASA) PO ONE (12:45)
[2021-12-03] MEDS ORDERED: cefTRIAXone 1 GM PRE-MIX 50 ML IV STA (13:06)
[2021-12-03] MEDS ORDERED: ENOXAPARIN 100 MG/1 ML (LOVENOX) SYR SC ONE (13:15)
[2021-12-03] MEDS ORDERED: polyethylene glycoL POWDER 17 GM (MIRALAX) PACK PO PRN (14:15)
[2021-12-03] MEDS ORDERED: ONDANSETRON 4 MG (ZOFRAN) ORAL DISSOLVE TAB PO PRN (14:15)
[2021-12-03] MEDS ORDERED: ENOXAPARIN 100 MG/1 ML (LOVENOX) SYR SC SCH (14:15)
[2021-12-03] MEDS ORDERED: BISACODYL 10 MG SUPP (DULCOLAX) PR PRN (14:15)
[2021-12-03] MEDS ORDERED: LACTULOSE SYRUP 10GM/15ML (ENULOSE) 30ML UDC PO PRN (14:15)
[2021-12-03] MEDS ORDERED: ONDANSETRON 4 MG/2 ML (SDV) Z0FRAN IV PRN (14:15)
[2021-12-03] MEDS ORDERED: MILK OF MAGNESIA 400 MG/5 ML 30 ML UDC PO PRN (14:15)
[2021-12-03] MEDS ORDERED: CALCIUM CARBONATE 500 MG (TUMS) TAB.CHEW PO PRN (14:15)
[2021-12-03] MEDS ORDERED: diphenhydrAMINE 25 MG TAB (BENADRYL) PO PRN (14:15)
[2021-12-03] MEDS ORDERED: ANTACID SUSP 30 ML UDC (MYLANTA) PO PRN (14:15)
[2021-12-03] MEDS ORDERED: MELATONIN 3 MG TABLET PO PRN (14:15)
--- NOTE | 2021-12-03 14:20 | Diagnostic Imaging Report ---
CT ABDOMEN/PELVIS WO TECHNIQUE: Unenhanced CT imaging of the abdomen and pelvis was performed. 2-D reformats are created and submitted for interpretation. Automatic exposure controls were utilized to optimize patient dose. INDICATION: Right-sided abdominal pain COMPARISON: 07/04/2015 FINDINGS: Evaluation of the abdominal viscera is suboptimal without contrast. Lower chest: There is a small amount of linear atelectasis within the right lower lobe. No pericardial or pleural effusion. Peritoneum: No free intraperitoneal air or fluid. Liver and biliary system: Unenhanced liver is normal. The gallbladder is normal. No biliary duct dilation. Spleen and Pancreas: Spleen is normal. Unenhanced pancreas is grossly normal. Adrenals: Normal. tract: No renal or ureteral calculi. No obstructive uropathy. Hysterectomy. No adnexal mass. GI tract: Stomach is decompressed. No bowel obstruction. Sigmoid colon diverticulosis without diverticulitis. Normal appendix. Vasculature and Lymph nodes: Normal caliber aorta with mild atherosclerotic plaquing. No abdominal or pelvic lymphadenopathy. Musculoskeletal: No concerning osseous lesion. IMPRESSION: 1. No acute obstructive or inflammatory process. 2. The appendix is normal. 3. No urinary tract calculi. Dictated by: Dictated on workstation # [id number]
[2021-12-03 14:38] VITALS: BP 147/72
[2021-12-03 16:12] VITALS: BP 213/86
--- NOTE | 2021-12-03 16:12 | Consultation-Cardiology ---
HPI-Cardiology Cardiology Consultation: Date of Consultation 12/03/21 Date of Admission 12/03/21 Attending Physician Shauna Rosenberg DO Admitting Physician Admitting Physician: Evelina Turner MD Attending Physician: Evelina Turner MD Consulting Physician NATE BOONE JR, MD HPI: Time Seen by a Provider: 16:07 Chief Complaint: REASON FOR CONSULTATION: Abnormal troponin level. I had the pleasure of seeing Marianne on the medical/surgical unit at [facility] in [place], [place] today. She has no known history of coronary artery disease but risk factors of hypertension and hyperlipidemia. Although she takes metformin, she tells me she is not diabetic. For the past couple of days she has had a headache as well as fever and chills. She has also had a cough and been slightly short of breath. The symptoms persisted into this morning and she was concerned that she might have COVID so she came to the emergency room for further evaluation. Her COVID test was negative but during her evaluation, she was found to have an elevated troponin level and a cardiology consultation was requested. She does get some light chest pain off and on over the years but nothing severe. She denies paroxysmal nocturnal dyspnea or orthopnea. She has had some dizzy spells and has fallen down a couple of times but not sustained any major injuries or fractures. She denies any syncope. She gets some very mild ankle edema from time to time. Certain portions of this document may have been dictated utilizing voice recognition technology. Inherent to this technology, typographical and grammatical errors may exist. As much as I am diligent to identify and correct these mistakes, some errors may remain in the document. Review of Systems-Cardiology Review of Systems Other comments Review of 10 organ systems is as per the history of present illness, otherwise negative. All Other Systems Reviewed Negative Unless Noted: Yes CXL-Oimnbg-Qvqass Hx Patient Social History Smoking Status: Never a Smoker Have you traveled recently?: No Alcohol Use?: No Pt feels they are or have been: No Immunizations Up To Date Tetanus Booster (TDap): Unknown Date of Pneumonia Vaccine: Jun 27, 2009 Date of Influenza Vaccine: Jan 15, 2017 Past Medical History PMH As described under Assessment. Family Medical History Family Medical History: One of her brothers had a myocardial infarction at the age of 52. Allergies and Home Medications Allergies Coded Allergies: Iodinated Contrast Media (Verified Allergy, Unknown, 04/09/17) Patient Home Medication List Home Medication List Reviewed: Yes Aspirin (Aspir 81) 81 Mg Tablet.dr, 81 MG PO DAILY, (Reported) Entered as Reported by: ASHLEY ROSSI on 04/09/171430 Last Action: Continued Atenolol (Atenolol) 100 Mg Tablet, 100 MG PO DAILY, (Reported) Entered as Reported by: ASHLEY ROSSI on 04/09/171430 Last Action: Converted Atorvastatin Calcium (Atorvastatin Calcium) 10 Mg Tablet, 10 MG PO HS, (Reported) Entered as Reported by: ASHLEY ROSSI on 04/09/171430 Last Action: Continued Doxycycline Hyclate (Doxycycline Hyclate) 100 Mg Capsule, 100 MG PO BID Prescribed by: GISELLE BROWN on 01/22/21 1128 Lamotrigine (Lamotrigine) 100 Mg Tablet, 100 MG PO DAILY, (Reported) Entered as Reported by: ASHLEY ROSSI on 04/09/171430 Lisinopril/Hydrochlorothiazide (Lisinopril-Hctz 10-12.5 mg Tab) 1 Each Tablet, 1 EACH PO DAILY, (Reported) Entered as Reported by: ASHLEY ROSSI on 04/09/171430 Lorazepam (Lorazepam) 0.5 Mg Tablet, 0.5 MG PO QID PRN for ANXIETY, (Reported) Entered as Reported by: ASHLEY ROSSI on 04/09/171430 Metformin HCl (Metformin HCl) 500 Mg Tablet, 500 MG PO BID, (Reported) Entered as Reported by: ASHLEY ROSSI on 04/09/171430 Omeprazole (Omeprazole) 40 Mg Capsule.dr, 40 MG PO DAILY, (Reported) Entered as Reported by: ASHLEY ROSSI on 04/09/171430 Potassium Chloride (Potassium Chloride) 10 Meq Tablet.er, 10 MEQ PO DAILY, (Reported) Entered as Reported by: ASHLEY ROSSI on 04/09/171430 Prednisone (Prednisone) 20 Mg Tab, 40 MG PO DAILY Prescribed by: GISELLE BROWN on 01/22/21 1128 Walker (Ultra-Light Rollator) 1 Each Each, EACH MC DAILY, (DME) Prescribed by: MAXI WILSON on 03/05/21 1721 Exam Vital Signs Vital Signs Date Time Temp Pulse Resp B/P (MAP) Pulse Ox O2 Delivery O2 Flow Rate FiO2 12/03/21 14:38 Room Air 12/03/21 14:38 36.6 62 18 147/72 (97) 95 Physical Exam General: Alert. No acute distress. Well nourished and appears stated age. She is obese. Eye: Extraocular movements are intact. Conjunctivae are clear. There are no xanthelasma. HENT: Normocephalic. Atraumatic. Carotid pulsations 2/2 without bruits. Neck: Jugular venous pressure does not appear elevated. No thyromegaly appreciated. Respiratory: Lungs are clear to auscultation. Respirations are non-labored. Breath sounds are equal. Symmetrical chest wall expansion. Cardiovascular: Normal rate. Regular rhythm. Distant S1/S2. No murmur. No gallop. Point of maximal impulse is not appear displaced. Good pulses equal in all extremities. No edema. Gastrointestinal: Soft. Normal bowel sounds. Skin: Skin turgor is normal. There is no pallor. Musculoskeletal: No kyphosis or scoliosis appreciated. Neurologic: Alert and oriented to person, place, time. Cranial nerves 3-12 appear grossly intact. The patient has good motor tone strength in the upper and lower extremities bilaterally. Psychiatric: Cooperative. Appropriate mood & affect. Labs Laboratory Tests Test 12/03/21 11:35 12/03/21 11:50 12/03/21 12:19 Range/Units Influenza Type A (RT-PCR) Not Detected Not Detecte Influenza Type B (RT-PCR) Not Detected Not Detecte SARS-CoV-2 RNA (RT-PCR) Not Detected Not Detecte White Blood Count 8.5 4.3-11.0 10^3/uL Red Blood Count 4.76 3.80-5.11 10^6/uL Hemoglobin 14.5 11.5-16.0 g/dL Hematocrit 45 35-52 % Mean Corpuscular Volume 94 80-99 fL Mean Corpuscular Hemoglobin 31 25-34 pg Mean Corpuscular Hemoglobin Concent 32 32-36 g/dL Red Cell Distribution Width 12.3 10.0-14.5 % Platelet Count 197 130-400 10^3/uL Mean Platelet Volume 10.2 9.0-12.2 fL Immature Granulocyte % (Auto) 0 % Neutrophils (%) (Auto) 76 H 42-75 % Lymphocytes (%) (Auto) 13 12-44 % Monocytes (%) (Auto) 11 0-12 % Eosinophils (%) (Auto) 0 0-10 % Basophils (%) (Auto) 0 0-10 % Neutrophils # (Auto) 6.5 1.8-7.8 10^3/uL Lymphocytes # (Auto) 1.1 1.0-4.0 10^3/uL Monocytes # (Auto) 0.9 0.0-1.0 10^3/uL Eosinophils # (Auto) 0.0 0.0-0.3 10^3/uL Basophils # (Auto) 0.0 0.0-0.1 10^3/uL Immature Granulocyte # (Auto) 0.0 0.0-0.1 10^3/uL Sodium Level 141 135-145 MMOL/L Potassium Level 3.6 3.6-5.0 MMOL/L Chloride Level 106 98-107 MMOL/L Carbon Dioxide Level 24 21-32 MMOL/L Anion Gap 11 5-14 MMOL/L Blood Urea Nitrogen 15 7-18 MG/DL Creatinine 0.88 0.60-1.30 MG/DL Estimat Glomerular Filtration Rate 66 BUN/Creatinine Ratio 17 Glucose Level 83 70-105 MG/DL Calcium Level 9.4 8.5-10.1 MG/DL Corrected Calcium 9.6 8.5-10.1 MG/DL Total Bilirubin 0.5 0.1-1.0 MG/DL Aspartate Amino Transf (AST/SGOT) 14 5-34 U/L Alanine Aminotransferase (ALT/SGPT) 19 0-55 U/L Alkaline Phosphatase 89 40-136 U/L Troponin I 0.047 H <0.028 NG/ML B-Type Natriuretic Peptide 287.3 H <100.0 PG/ML Total Protein 7.0 6.4-8.2 GM/DL Albumin 3.8 3.2-4.5 GM/DL Lipase 25 8-78 U/L Urine Color YELLOW Urine Clarity SL CLOUDY Urine pH 6.5 5-9 Urine Specific [place] 1.020 1.016-1.022 Urine Protein 2+ H NEGATIVE Urine Glucose (UA) NEGATIVE NEGATIVE Urine Ketones TRACE H NEGATIVE Urine Nitrite NEGATIVE NEGATIVE Urine Bilirubin 1+ H NEGATIVE Urine Urobilinogen 4.0 < = 1.0 MG/DL Urine Leukocyte Esterase 2+ H NEGATIVE Urine RBC (Auto) 1+ H NEGATIVE Urine RBC 2-5 H /HPF Urine WBC 5-10 H /HPF Urine Squamous Epithelial Cells 5-10 /HPF Urine Crystals NONE /LPF Urine Bacteria MODERATE H /HPF Urine Casts PRESENT /LPF Urine Hyaline Casts 10-25 H /LPF Urine Mucus MODERATE H /LPF Urine Culture Indicated YES ECG Impression ECG Comment Electrocardiogram from earlier today in the emergency room shows sinus rhythm, normal tracing. Diagnosis/Problems Diagnosis/Problems (1) Troponin level elevated Assessment & Plan: Exact etiology unclear. She is not having any significant chest discomfort although does have shortness of breath. Her electrocardiogram is normal. She does not have any other noncardiac issues to explain a troponin level elevation and less she has respiratory infection. She has been treated with aspirin and enoxaparin in the emergency room. I will restart her beta- jessa and statin medication that she was taking at home. We will obtain serial troponin levels. I have also ordered an echocardiogram for the morning. Depending upon the results of the troponin levels, we will decide upon the most appropriate ischemic evaluation if she wishes to have this further evaluated. (2) Shortness of breath Assessment & Plan: She has been having dyspnea for at least the past several months, even before she had COVID in June 2021. I suspect some of this may be related to her obesity and some component of deconditioning. Nonetheless, with the marginally elevated troponin level, this is concerning for underlying cardiac disease. As above, I have ordered an echocardiogram for tomorrow. She has also been given intravenous antibiotics. I have ordered a follow-up chest x-ray for tomorrow. (3) Primary hypertension Assessment & Plan: Continue atenolol. (4) Mixed hyperlipidemia Assessment & Plan: Continue atorvastatin. I ordered a lipid panel for the morning. (5) Morbid obesity Status: Chronic Assessment & Plan: She needs to work on weight loss. NATE BOONE JR, MD Dec 03, 2021 16:12
[2021-12-03 16:48] LABS: BILIRUBIN,URINE 1+ (NEGATIVE)
[2021-12-03] MEDS ORDERED: ATOR20TA66 PO (17:27)
[2021-12-03] MEDS ORDERED: FLUO10CA33 PO (17:29)
[2021-12-03] MEDS ORDERED: lisINopril 10 MG (PRINIVIL) TABLET PO ONE (17:30)
[2021-12-03] MEDS ORDERED: CHOL500L3 PO (17:33)
[2021-12-03] MEDS ORDERED: lisINopril 10 MG (PRINIVIL) TABLET ONE (17:37)
[2021-12-03 19:47] VITALS: BP 209/87
[2021-12-03] MEDS: SENNOSIDES 8.6 MG (SENOKOT) TAB PO SCH (20:04)
[2021-12-03] MEDS: DOCUSATE SODIUM 100 MG (COLACE) CAP PO SCH (20:04)
[2021-12-03] MEDS ORDERED: hydrALAZINE (APESOLINE) 20 MG/ML VIAL ONE (20:11)
[2021-12-03] MEDS: hydrALAZINE (APESOLINE) 20 MG/ML VIAL IV PRN (20:13)
[2021-12-03] MEDS: AtorvaSTATin TABLET 10 MG TABLET PO SCH (20:13)
[2021-12-03 20:55] VITALS: BP 152/67
[2021-12-04] VITALS (24 sets, daily range): BP systolic 133–227; BP diastolic 61–93
[2021-12-04] MEDS: hydrALAZINE (APESOLINE) 20 MG/ML VIAL IV PRN (04:20)
[2021-12-04] MEDS: ACETAMINOPHEN 325 MG TABLET PO PRN ×3 (04:28→17:16)
[2021-12-04] MEDS ORDERED: hydrALAZINE (APESOLINE) 20 MG/ML VIAL IV ONE (05:15)
[2021-12-04] MEDS ORDERED: LORazepam 0.5 MG (ATIVAN) TABLET PO STA (05:29)
[2021-12-04] MEDS ORDERED: LORazepam INJ 2 MG/ML (ATIVAN) VIAL IVP STA (06:34)
[2021-12-04] MEDS ORDERED: HALOPERIDOL 5 MG/ML (HALDOL) VIAL ONE (06:45)
[2021-12-04] MEDS ORDERED: HALOPERIDOL 5 MG/ML (HALDOL) VIAL IV ONE (06:45)
--- NOTE | 2021-12-04 07:02 | Diagnostic Imaging Report ---
EXAMINATION: CT head without contrast. TECHNIQUE: Multiple contiguous axial images were obtained through the brain without the use of intravenous contrast. All CT scans use one or more of the following dose optimizing techniques: automated exposure control, MA and/or KvP adjustment based on patient size and exam type or iterative reconstruction. HISTORY: Altered mental status COMPARISON: 03/05/2021 FINDINGS: Mild diffuse cerebral volume loss with proportional enlargement of the ventricles and sulci. Mild hypodensities throughout the supratentorial white matter of both cerebral hemispheres. No acute intracranial hemorrhage or abnormal extra-axial fluid collections are present. Calcification of the intracranial ICAs. No hyperdense vessel. The calvarium is intact. The mastoid air cells are clear. The visualized paranasal sinuses are clear. Orbits are unremarkable. IMPRESSION: 1. No acute intracranial abnormality. 2. Mild chronic microangiopathy and volume loss. Dictated by: Dictated on workstation # [id number]
[2021-12-04] MEDS: DOCUSATE SODIUM 100 MG (COLACE) CAP PO SCH ×2 (08:33→20:08)
[2021-12-04] MEDS: SENNOSIDES 8.6 MG (SENOKOT) TAB PO SCH ×2 (08:33→20:09)
[2021-12-04] MEDS: ASPIRIN E.C. 81 MG (ECOTRIN) TAB PO SCH (08:34)
[2021-12-04] MEDS: ATENOLOL 25 MG (TENORMIN) TAB PO SCH (08:34)
[2021-12-04] MEDS ORDERED: ASPIRIN 81 MG CHEW (CHILDREN'S ASA) PO SCH (09:00)
[2021-12-04] MEDS ORDERED: lisINopril 10 MG (PRINIVIL) TABLET PO SCH (09:00)
--- NOTE | 2021-12-04 09:20 | Tele-ICU Consult ---
History of Present Illness History of Present Illness Date Seen by Provider: Dec 04, 2021 Time Seen by Provider: 09:16 Date of Admission 81 yo F with AMS, has improved somewhat since then, Moves all o4 extremities, no facial droopBP , to get IV Cardene, CT head ok became confused around 6 am, trop 0.037 Initally admitted for UTI and NSTEMI Appear able to protect airway Allergies and Home Medications Allergies Coded Allergies: Iodinated Contrast Media (Verified Allergy, Unknown, 04/09/17) Home Medications Aspirin 81 Mg Tablet.dr, 81 MG PO DAILY, (Reported) Atenolol 100 Mg Tablet, 100 MG PO DAILY, (Reported) Atorvastatin Calcium 20 Mg Tablet, 20 MG PO HS, (Reported) Cholecalciferol (Vitamin D3) 12.5 Mcg/5 Ml (500 Unit/5 Ml) Liquid, 12.5 MCG PO DAILY, (Reported) Fluoxetine HCl 10 Mg Capsule, 10 MG PO DAILY, (Reported) Lamotrigine 100 Mg Tablet, 100 MG PO DAILY, (Reported) Lisinopril/Hydrochlorothiazide 1 Each Tablet, 1 EACH PO DAILY, (Reported) Omeprazole 40 Mg Capsule.dr, 40 MG PO DAILY, (Reported) Past Medical/Social/Family Hx Patient Social History Tobacco Use?: No Smoking Status: Never a Smoker Use of E-Cig and/or Vaping dev: No Substance use?: No Alcohol Use?: No Alcohol Frequency: Once in a while Pt stated abuse/neglect: No Immunizations Up To Date First/Initial COVID19 Vaccinat: june 2020 Second COVID19 Vaccination Abraham: june 2020 Tetanus Booster (TDap): Unknown Date of Pneumonia Vaccine: Jun 27, 2009 Current Status Advance Directives: No Communicates: Verbally Primary Language: Setswana Preferred Spoken Language: Setswana Sensory deficits: Vision impairment Implanted or Applied Medical D: Orthopedic hardware Review of Systems Constitutional: see HPI EENTM: see HPI Respiratory: see HPI Cardiovascular: see HPI Gastrointestinal: see HPI Genitourinary: see HPI Musculoskeletal: see HPI Skin: see HPI Psychiatric/Neurological: See HPI Focused Exam Height, Weight, BMI Height: 5'3.00" Weight: 180lbs. 0.0oz. [id number]; 35.54 BMI Method:Stated Exam Exam Patient acknowledged, consented, and participated in this virtual visit which was conducted using real time audio/video Vital Signs Date Time Temp Pulse Resp B/P (MAP) Pulse Ox O2 Delivery O2 Flow Rate FiO2 12/04/21 08:58 87 12/04/21 07:44 35.7 70 19 137/63 (87) 90 Room Air 12/04/21 07:09 69 12/04/21 07:02 194/91 (125) 12/04/21 05:30 35.8 67 163/90 (114) 94 Room Air 12/04/21 05:00 219/93 (135) 12/04/21 04:20 227/91 (136) 12/04/21 03:55 36.4 64 18 197/84 (121) 96 Room Air 12/04/21 01:00 57 12/04/21 00:24 36.1 60 18 168/75 (106) 92 Room Air 12/03/21 20:55 152/67 (95) 12/03/21 20:32 Room Air 12/03/21 19:47 36.3 66 18 209/87 (127) 92 Room Air 12/03/21 19:00 65 12/03/21 16:12 36.4 62 18 213/86 (128) 96 Room Air 12/03/21 14:38 Room Air 12/03/21 14:38 36.6 62 18 147/72 (97) 95 Room Air 12/03/21 14:10 36.7 65 20 169/71 96 Room Air 12/03/21 11:59 36.7 12/03/21 11:31 36.7 70 20 200/82 (121) 96 Room Air I & O 12/04/21 06:59 Intake Total 290 ml Balance 290 ml Height & Weight Height: 5'3.00" Weight: 180lbs. 0.0oz. [id number]; 35.54 BMI Method:Stated General Appearance: No Apparent Distress Respiratory: Lungs Clear Cardiovascular: Regular Rate, Rhythm, No Edema Capillary Refill: Less Than 3 Seconds Gastrointestinal: normal bowel sounds, non tender, soft Neurologic/Psychiatric: Alert, Other (oriented x 2) Results Lab Laboratory Tests 12/03/21 11:50 Assessment/Plan Assessment/Plan Trend in mental status is toward improvement, Suspect from high BP, will continue IV nicardipine \\ Critical Care: Critically Ill Patient Time spent with patient (mins): 30 CARLOS FLORES MD Dec 04, 2021 09:20
--- NOTE | 2021-12-04 09:25 | Diagnostic Imaging Report ---
INDICATION: Shortness of air. TIME OF EXAM: 8:50 AM. COMPARISON: 12/03/2021. FINDINGS: The heart size is normal. The pulmonary vascularity is unremarkable. The lungs are clear. No infiltrate, effusion, or pneumothorax is detected. IMPRESSION: No acute cardiopulmonary process is detected. Dictated by: Dictated on workstation # [id number]
[2021-12-04] MEDS: niCARdipine IV FOR DRIP 50 MG in NS (IVPB) 230 ML IV SCH ×2 (09:35→15:30)
[2021-12-04 10:04] LABS: HEMATOCRIT 46 % (35-52); HEMOGLOBIN 14.4 g/dL (11.5-16.0); MEAN CORPUSCULAR HEMOGLOBIN 30 pg (25-34); MEAN CORPUSCULAR HGB CONC 32 g/dL (32-36); MEAN CORPUSCULAR VOLUME 94 fL (80-99); MEAN PLATELET VOLUME 10.3 fL (9.0-12.2); PLATELET COUNT 192 10^3/uL (130-400)
[2021-12-04 10:31] LABS: POTASSIUM 3.7 MMOL/L (3.6-5.0)
[2021-12-04 10:32] LABS: CALCIUM 9.4 MG/DL (8.5-10.1)
[2021-12-04 10:37] LABS: CREATININE SERUM 0.78 MG/DL (0.60-1.30)
[2021-12-04] MEDS: cefTRIAXone 2,000 MG in NS (IVPB) 50 ML IV SCH (13:38)
[2021-12-04] MEDS ORDERED: ASPI-1238 PO (14:32)
[2021-12-04] MEDS ORDERED: CHOL100048 PO (14:32)
[2021-12-04] MEDS: ENOXAPARIN 100 MG/1 ML (LOVENOX) SYR SC SCH (16:12)
--- NOTE | 2021-12-04 16:17 | Cardiology Progress Note ---
Progress Note-Cardiology Events since last exam Date Seen by Provider: Dec 04, 2021 Time Seen by Provider: 17:00 Events since last exam I am following her due to elevated troponin level. Earlier today, her blood pressure became markedly elevated. At the time she was complaining of a headache and some mild nausea. She was placed on nicardipine infusion and transferred to the intensive care unit. Her headache has improved but not completely resolved. She denies chest discomfort, dyspnea at rest, palpitati ons, or syncope. She has mild peripheral edema. Certain portions of this document may have been dictated utilizing voice recognition technology. Inherent to this technology, typographical and gramm atical errors may exist. As much as I am diligent to identify and correct these mistakes, some errors may remain in the document. Vitals Last set of Vitals Signs Vital Signs 12/04/21 12/04/21 16:00 16:31 Temp 36.3 Pulse 72 Resp 14 B/P (MAP) 135/61 (85) Pulse Ox 97 O2 Delivery Room Air Labs Labs Laboratory Tests 12/04/21 09:55 Exam Vital Signs Vital Signs Date Time Temp Pulse Resp B/P (MAP) Pulse Ox O2 Delivery O2 Flow Rate FiO2 12/04/21 16:31 36.3 12/04/21 16:00 72 14 135/61 (85) 97 Room Air Physical Exam General: Alert. No acute distress. She is obese. Eye: No xanthelasma. HENT: Normocephalic. Neck: Jugular venous pressure does not appear elevated. Respiratory: Lungs are clear to auscultation. Respirations are non-labored. Breath sounds are equal. Symmetrical chest wall expansion. Cardiovascular: Normal rate. Regular rhythm. Distant S1/S2. 2/6 holosystolic murmur. No gallop. 1+ bilateral pretibial edema. Gastrointestinal: Soft. Normal bowel sounds. Skin: Warm. Dry. Neurologic: Alert and oriented to person, place, time. Cranial nerves 3-11 grossly intact. Psychiatric: Cooperative. Appropriate mood & affect. Labs Laboratory Tests Test 12/03/21 17:53 12/04/21 09:55 Range/Units Troponin I 0.037 H <0.028 NG/ML Thyroid Stimulating Hormone (TSH) 3.50 0.35-4.94 UIU/ML White Blood Count 6.0 4.3-11.0 10^3/uL Red Blood Count 4.82 3.80-5.11 10^6/uL Hemoglobin 14.4 11.5-16.0 g/dL Hematocrit 46 35-52 % Mean Corpuscular Volume 94 80-99 fL Mean Corpuscular Hemoglobin 30 25-34 pg Mean Corpuscular Hemoglobin Concent 32 32-36 g/dL Red Cell Distribution Width 12.2 10.0-14.5 % Platelet Count 192 130-400 10^3/uL Mean Platelet Volume 10.3 9.0-12.2 fL Sodium Level 142 135-145 MMOL/L Potassium Level 3.7 3.6-5.0 MMOL/L Chloride Level 106 98-107 MMOL/L Carbon Dioxide Level 23 21-32 MMOL/L Anion Gap 13 5-14 MMOL/L Blood Urea Nitrogen 15 7-18 MG/DL Creatinine 0.78 0.60-1.30 MG/DL Estimat Glomerular Filtration Rate 76 BUN/Creatinine Ratio 19 Glucose Level 128 H 70-105 MG/DL Calcium Level 9.4 8.5-10.1 MG/DL Triglycerides Level 95 <150 MG/DL Cholesterol Level 168 < 200 MG/DL LDL Cholesterol Direct 112 1-129 MG/DL VLDL Cholesterol 19 5-40 MG/DL HDL Cholesterol 40 40-60 MG/DL Radiology ECHOCARDIOGRAM (12/04/2021): 1. Left ventricle: The cavity size is normal. There is mild concentric hypertrophy. Systolic function is normal. The estimated ejection fraction is 60- 65%. There were no regional wall motion abnormalities identified. Doppler parameters are consistent with abnormal left ventricular relaxation (grade 1 diastolic dysfunction). 2. Mitral valve: The annulus is mildly calcified. 3. Aortic valve: There is mild aortic valve sclerosis. There is mild aortic regurgitation with a pressure half-time of 447 ms. 4. Pulmonary arteries: The estimated pulmonary artery systolic pressure is 38 mmHg assuming a right atrial pressure of 5 mmHg. Diagnosis/Problems Diagnosis/Problems (1) Troponin level elevated Assessment & Plan: Exact etiology unclear. She has not been having any significant chest discomfort although does have shortness of breath. Her electrocardiogram is normal. She does not have any other noncardiac issues to explain a troponin level elevation UNless she has respiratory infection. Her troponin levels became slightly elevated and then declined. These were borderline elevated. She is on aspirin, beta-jessa and statin medication. She has also been receiving full-strength enoxaparin. I recommend we proceed with a nuclear stress test. (2) Shortness of breath Assessment & Plan: She has been having dyspnea for at least the past several months, even before she had COVID in June 2021. I suspect some of this may be related to her obesity and some component of deconditioning. Nonetheless, with the marginally elevated troponin level, this is concerning for underlying cardiac disease. Her echocardiogram showed normal ejection fraction and no significant valvular disease to explain dyspnea. She has also been given intravenous antibiotics. Her chest x-ray from this morning was interpreted as no acute abnormality. (3) Hypertensive urgency Assessment & Plan: Her blood pressure was markedly elevated this morning and she was started on nicardipine infusion. Her blood pressure has been trending downwards. She is on atenolol which she was taking at home. I added a low-dose of lisinopril this morning. I will give her an extra dose of lisinopril this evening and increase the dose to 20 mg daily starting 12/05. (4) Mixed hyperlipidemia Assessment & Plan: Continue atorvastatin. Her LDL is elevated. Depending on the results of the stress test, we may want to consider increasing the dose of statin medication. (5) Primary hypertension Assessment & Plan: As above. (6) Obesity Status: Chronic Assessment & Plan: She needs to work on weight loss. NATE BOONE JR, MD Dec 04, 2021 16:17
[2021-12-04] MEDS ORDERED: REGADENOSON 0.4 MG/5 ML SYR (LEXISCAN) IV ONE (17:00)
[2021-12-04] MEDS ORDERED: lisINopril 10 MG (PRINIVIL) TABLET PO NR (17:00)
--- NOTE | 2021-12-04 18:57 | Progress Note ---
Subjective Date Seen by a Provider: Dec 04, 2021 Time Seen by a Provider: 08:32 Subjective/Events-last exam Fwup elevated troponin-I, hypertensive urgency, AMS, UTI. Resting in bed and complains of VARGAS. Objective Exam Vital Signs Date Time Temp Pulse Resp B/P (MAP) Pulse Ox O2 Delivery O2 Flow Rate FiO2 12/04/21 18:00 70 12 133/63 (86) 96 Room Air 12/04/21 17:00 71 13 141/67 (91) 97 Room Air 12/04/21 16:31 36.3 12/04/21 16:00 Nasal Cannula 2.00 12/04/21 16:00 72 14 135/61 (85) 97 Room Air 12/04/21 15:30 66 161/74 12/04/21 15:00 66 16 161/74 (103) 96 Room Air 12/04/21 14:00 71 36 157/77 (103) 97 Room Air 12/04/21 13:00 60 11 157/73 (101) 97 Room Air 12/04/21 12:56 56 12/04/21 12:00 59 12 157/74 (101) 92 Room Air 12/04/21 12:00 Room Air 12/04/21 12:00 36.0 12/04/21 11:00 56 10 165/83 (110) 92 Room Air 12/04/21 10:00 59 18 158/76 (103) 91 Room Air 12/04/21 09:35 87 203/75 12/04/21 09:30 61 16 169/72 (104) 91 Room Air 12/04/21 09:15 62 22 167/89 (115) 90 Room Air 12/04/21 09:00 77 15 203/75 (117) 93 Room Air 12/04/21 08:58 87 12/04/21 08:45 Room Air 12/04/21 07:44 35.7 70 19 137/63 (87) 90 Room Air 12/04/21 07:09 69 12/04/21 07:02 194/91 (125) 12/04/21 05:30 35.8 67 163/90 (114) 94 Room Air 12/04/21 05:00 219/93 (135) 12/04/21 04:20 227/91 (136) 12/04/21 03:55 36.4 64 18 197/84 (121) 96 Room Air 12/04/21 01:00 57 12/04/21 00:24 36.1 60 18 168/75 (106) 92 Room Air 12/03/21 20:55 152/67 (95) 12/03/21 20:32 Room Air 12/03/21 19:47 36.3 66 18 209/87 (127) 92 Room Air 12/03/21 19:00 65 I & O 12/04/21 07:00 Intake Total 290 ml Balance 290 ml Capillary Refill : Less Than 3 Seconds General Appearance: Mild Distress Respiratory: Lungs Clear Cardiovascular: Regular Rate, Rhythm, Gallop/S4 Gastrointestinal: normal bowel sounds, non tender, soft Extremity: Non Tender, No Calf Tenderness, No Pedal Edema Neurologic/Psychiatric: Alert, Oriented x3 Results Lab Laboratory Tests 12/04/21 09:55: White Blood Count 6.0, Red Blood Count 4.82, Hemoglobin 14.4, Hematocrit 46, Mean Corpuscular Volume 94, Mean Corpuscular Hemoglobin 30, Mean Corpuscular Hemoglobin Concent 32, Red Cell Distribution Width 12.2, Platelet Count 192, Mean Platelet Volume 10.3, Sodium Level 142, Potassium Level 3.7, Chloride Level 106, Carbon Dioxide Level 23, Anion Gap 13, Blood Urea Nitrogen 15, Creatinine 0.78, Estimat Glomerular Filtration Rate 76, BUN/Creatinine Ratio 19, Glucose Level 128H, Calcium Level 9.4, Triglycerides Level 95, Cholesterol Level 168, LDL Cholesterol Direct 112, VLDL Cholesterol 19, HDL Cholesterol 40 Microbiology 12/03/21 Urine Culture - Final, Complete Mixed Bacterial Aixa Assessment/Plan Assessment/Plan Assess & Plan/Chief Complaint 1. Elevated Troponin-I--cardiology consulted, ECHO results pending, lab trending down 2. Hypertensive Urgency--being transferred to ICU for Cardene drip 3. AMS--CT scan negative, likely Hypertensive Encephalopathy 4. UTI--on DYLAN Mancuso DO Dec 04, 2021 18:57
[2021-12-04] MEDS ORDERED: NS IV 500 ML 500 ML IV PRN (19:30)
[2021-12-04] MEDS: AtorvaSTATin TABLET 10 MG TABLET PO SCH (19:30)
[2021-12-04] MEDS: diphenhydrAMINE 50 MG/ML INJ (BENADRYL) IVP PRN (19:30)
[2021-12-05] VITALS (18 sets, daily range): BP systolic 123–171; BP diastolic 49–122
[2021-12-05] MEDS: hydrALAZINE (APESOLINE) 20 MG/ML VIAL IV PRN (01:19)
[2021-12-05] MEDS: niCARdipine IV FOR DRIP 50 MG in NS (IVPB) 230 ML IV SCH ×2 (01:55→12:08)
[2021-12-05] MEDS: ENOXAPARIN 100 MG/1 ML (LOVENOX) SYR SC SCH ×2 (02:44→13:56)
[2021-12-05 03:53] LABS: BASOPHILS % (AUTO) 0 % (0-10); EOSINOPHILS % (AUTO) 0 % (0-10); HEMATOCRIT 47 % (35-52); HEMOGLOBIN 15.1 g/dL (11.5-16.0); LYMPHOCYTES # (AUTO) 1.2 10^3/uL (1.0-4.0); LYMPHOCYTES % (AUTO) 13 % (12-44); MEAN CORPUSCULAR HEMOGLOBIN 30 pg (25-34); MEAN CORPUSCULAR HGB CONC 32 g/dL (32-36); MEAN CORPUSCULAR VOLUME 95 fL (80-99); MEAN PLATELET VOLUME 10.4 fL (9.0-12.2); MONOCYTES # (AUTO) 0.6 10^3/uL (0.0-1.0); MONOCYTES % (AUTO) 7 % (0-12); NEUTROPHILS # (AUTO) 7.3 10^3/uL (1.8-7.8); NEUTROPHILS % (AUTO) 79 % (42-75); PLATELET COUNT 237 10^3/uL (130-400); WHITE BLOOD COUNT 9.2 10^3/uL (4.3-11.0)
[2021-12-05 04:06] LABS: POTASSIUM 3.8 MMOL/L (3.6-5.0)
[2021-12-05 04:07] LABS: CALCIUM 9.5 MG/DL (8.5-10.1)
[2021-12-05 04:12] LABS: CREATININE SERUM 0.91 MG/DL (0.60-1.30); PHOSPHORUS 3.5 MG/DL (2.3-4.7)
[2021-12-05 04:14] LABS: MAGNESIUM 2.1 MG/DL (1.6-2.4)
[2021-12-05] MEDS ORDERED: MAGNESIUM 1 GM/100 ML IVPB 100 ML IV SCH (06:00)
[2021-12-05] MEDS ORDERED: KCL 20 MEQ TAB (K-DUR) PO SCH (06:00)
[2021-12-05] MEDS ORDERED: POTASSIUM CL 10MEQ/50ML IVPB 50 ML IV SCH (06:00)
[2021-12-05] MEDS ORDERED: CATHETER FLUSH 10 ML SYR IVP PRN (08:45)
[2021-12-05] MEDS ORDERED: REGADENOSON 0.4 MG/5 ML SYR (LEXISCAN) IV ONE (09:36)
[2021-12-05] MEDS: SENNOSIDES 8.6 MG (SENOKOT) TAB PO SCH ×2 (10:00→19:29)
[2021-12-05] MEDS: DOCUSATE SODIUM 100 MG (COLACE) CAP PO SCH ×2 (10:00→19:29)
[2021-12-05] MEDS: ASPIRIN E.C. 81 MG (ECOTRIN) TAB PO SCH (10:43)
[2021-12-05] MEDS: ATENOLOL 25 MG (TENORMIN) TAB PO SCH (10:43)
[2021-12-05] MEDS: lisINopril 20 MG (PRINIVIL) TABLET PO SCH (10:43)
[2021-12-05] MEDS ORDERED: ATENOLOL 25 MG (TENORMIN) TAB ONE (10:46)
--- NOTE | 2021-12-05 12:44 | Progress Note ---
Subjective Date Seen by a Provider: Dec 05, 2021 Time Seen by a Provider: 08:30 Subjective/Events-last exam Fwup elevated troponin-I, hypertensive urgency, AMS, UTI. Off Cardene drip and BP stable. Was supposed to get stress test this morning but refused test. Objective Exam Vital Signs Date Time Temp Pulse Resp B/P (MAP) Pulse Ox O2 Delivery O2 Flow Rate FiO2 12/05/21 12:32 60 12/05/21 12:08 59 141/74 12/05/21 12:00 Nasal Cannula 2.00 12/05/21 12:00 59 23 141/74 (96) 99 Nasal Cannula 2.00 12/05/21 11:00 70 15 124/56 (78) 97 Nasal Cannula 2.00 12/05/21 10:00 84 140/69 (92) Nasal Cannula 2.00 12/05/21 09:39 88 145/66 (92) 12/05/21 08:00 78 26 146/78 (100) 96 Nasal Cannula 2.00 12/05/21 07:58 Nasal Cannula 2.00 12/05/21 07:30 79 12/05/21 07:00 69 29 132/49 (76) 95 Nasal Cannula 2.00 12/05/21 06:00 71 23 146/68 (94) 96 Nasal Cannula 2.00 12/05/21 05:00 76 21 171/81 (111) 96 Nasal Cannula 2.00 12/05/21 04:00 73 17 146/122 (130) 96 Nasal Cannula 2.00 12/05/21 03:33 68 24 168/72 (104) 96 Nasal Cannula 2.00 12/05/21 03:15 Nasal Cannula 2.00 12/05/21 03:14 36.0 Nasal Cannula 2.00 12/05/21 03:00 69 12 159/81 (107) 96 Nasal Cannula 2.00 12/05/21 02:00 64 9 151/62 (91) 98 Nasal Cannula 2.00 12/05/21 01:55 64 12/05/21 01:00 61 14 159/69 (99) 99 Nasal Cannula 2.00 12/05/21 01:00 61 12/05/21 00:00 59 20 148/64 (92) 99 Nasal Cannula 2.00 12/04/21 23:41 35.8 Nasal Cannula 2.00 12/04/21 23:40 Nasal Cannula 2.00 12/04/21 23:00 63 14 146/71 (96) 95 Room Air 12/04/21 22:00 67 15 158/71 (100) 95 Room Air 12/04/21 21:04 35.9 12/04/21 21:00 67 11 153/72 (99) 96 Room Air 12/04/21 20:00 Nasal Cannula 2.00 12/04/21 20:00 57 13 154/68 (96) 96 Room Air 12/04/21 19:00 66 17 150/70 (96) 95 Room Air 12/04/21 19:00 66 12/04/21 18:00 70 12 133/63 (86) 96 Room Air 12/04/21 17:00 71 13 141/67 (91) 97 Room Air 12/04/21 16:31 36.3 12/04/21 16:00 Nasal Cannula 2.00 12/04/21 16:00 72 14 135/61 (85) 97 Room Air 12/04/21 15:30 66 161/74 12/04/21 15:00 66 16 161/74 (103) 96 Room Air 12/04/21 14:00 71 36 157/77 (103) 97 Room Air 12/04/21 13:00 60 11 157/73 (101) 97 Room Air 12/04/21 12:56 56 I & O 12/05/21 07:00 Intake Total 650 ml Output Total 1050 ml Balance -400 ml Capillary Refill : Less Than 3 Seconds General Appearance: No Apparent Distress Respiratory: Lungs Clear Cardiovascular: Regular Rate, Rhythm, Systolic Murmur, Gallop/S4 Gastrointestinal: normal bowel sounds, non tender, soft Extremity: Non Tender, No Calf Tenderness, No Pedal Edema Neurologic/Psychiatric: Alert, Oriented x3 Results Lab Laboratory Tests 12/05/21 03:30: White Blood Count 9.2, Red Blood Count 5.00, Hemoglobin 15.1, Hematocrit 47, Mean Corpuscular Volume 95, Mean Corpuscular Hemoglobin 30, Mean Corpuscular Hemoglobin Concent 32, Red Cell Distribution Width 12.4, Platelet Count 237, Mean Platelet Volume 10.4, Immature Granulocyte % (Auto) 0, Neutrophils (%) (Auto) 79H, Lymphocytes (%) (Auto) 13, Monocytes (%) (Auto) 7, Eosinophils (%) (Auto) 0, Basophils (%) (Auto) 0, Neutrophils # (Auto) 7.3, Lymphocytes # (Auto) 1.2, Monocytes # (Auto) 0.6, Eosinophils # (Auto) 0.0, Basophils # (Auto) 0.0, Immature Granulocyte # (Auto) 0.0, Sodium Level 139, Potassium Level 3.8, Chloride Level 104, Carbon Dioxide Level 25, Anion Gap 10, Blood Urea Nitrogen 13, Creatinine 0.91, Estimat Glomerular Filtration Rate 63, BUN/Creatinine Ratio 14, Glucose Level 101, Calcium Level 9.5, Phosphorus Level 3.5, Magnesium Level 2.1 Microbiology 12/03/21 Urine Culture - Final, Complete Mixed Bacterial Aixa Assessment/Plan Assessment/Plan Assess & Plan/Chief Complaint 1. Elevated Troponin-I--cardiology consulted, ECHO showed aortic sclerosis with aortic regurg with preserved EF of 60-65%, after talking with patient and son she agrees to proceed with stress test 2. Hypertensive Urgency--improved, off cardene drip 3. AMS--CT scan negative, likely Hypertensive Encephalopathy--improving 4. UTI--on DYLAN Mancuso DO Dec 05, 2021 12:44
--- NOTE | 2021-12-05 12:49 | NUCLEAR STRESS TEST ---
REGADENOSON NUCLEAR STRESS Date of procedure: 12/05/2021. Primary care provider: Shauna Rosenberg DO Admitting physician: Shauna Rosenberg DO INDICATION: Abnormal troponin level. BASELINE ELECTROCARDIOGRAM: Sinus rhythm with early transition. STRESS TEST PROCEDURE: The patient was administered 0.4 mg of intravenous Regadenoson. The resting heart rate was 88 bpm and the peak heart rate was 103 bpm. The resting blood pressure was 145/88 mmHg and the minimum blood pressure was 129/55 mmHg. This represents a normal heart rate and a normal blood pressure response to Regadenoson. The test was stopped due to the protocol. There was no chest discomfort during the test. There were no arrhythmias during the test. There were no significant stress induced electrocardiogram changes. NUCLEAR PROCEDURE: The patient was administered 9 mCi of intravenous technetium 99m Tetrofosmin at rest for the rest images. The patient was subsequently administered 28 mCi of intravenous technetium 99m Tetrofosmin at peak stress for the stress images. Following an appropriate wait after each injection, imaging was obtained. The images were subsequently processed and reformatted in the usual views. Gated imaging was obtained. The image quality was adequate with a mild degree of gastrointestinal attenuation artifact. CT attenuation correction was used as a adjunct to standard imaging. Both the corrected and uncorrected images were reviewed for interpretation. NUCLEAR RESULTS: There was normal myocardial perfusion in all segments without evidence of infarction or ischemia. There was normal left ventricular chamber size with an end-diastolic volume of 37 mL and an end-systolic volume of 6 mL. There was no evidence of transient ischemic dilatation. The TID ratio was 1.08. There was normal wall motion in all segments with a calculated ejection fraction of 83%. IMPRESSION: 1. Normal heart rate and blood pressure response to regadenoson. 2. There was no chest discomfort, arrhythmias, or electrocardiogram changes during the test. 3. There was normal myocardial perfusion in all segments without evidence of infarction or ischemia. 4. There was normal wall motion in all segments with a calculated ejection fraction of 83%. Certain portions of this document may have been dictated utilizing voice recognition technology. Inherent to this technology, typographical and grammatical errors may exist. As much as I am diligent to identify and correct these mistakes, some errors may remain in the document. NATE BOONE JR, MD Dec 05, 2021 12:49
[2021-12-05] MEDS: cefTRIAXone 2,000 MG in NS (IVPB) 50 ML IV SCH (13:56)
--- NOTE | 2021-12-05 16:00 | Cardiology Progress Note ---
Progress Note-Cardiology Events since last exam Date Seen by Provider: Dec 05, 2021 Time Seen by Provider: 15:55 Events since last exam I am following her due to abnormal troponin level. Her breathing has improved. She denies chest discomfort, palpitations, syncope, or ankle edema. She was having headaches prior to admission but these have also improved. Certain portions of this document may have been dictated utilizing voice recognition technology. Inherent to this technology, typographical and grammat ical errors may exist. As much as I am diligent to identify and correct these mistakes, some errors may remain in the document. Vitals Last set of Vitals Signs Vital Signs 12/05/21 12/05/21 12/05/21 14:00 14:05 15:42 Temp 36.0 Pulse 68 Resp 19 B/P (MAP) 126/55 (78) Pulse Ox 97 O2 Delivery Nasal Cannula O2 Flow Rate 2.00 Labs Labs Laboratory Tests 12/05/21 03:30 Exam Vital Signs Vital Signs Date Time Temp Pulse Resp B/P (MAP) Pulse Ox O2 Delivery O2 Flow Rate FiO2 12/05/21 15:42 36.0 12/05/21 14:05 97 Nasal Cannula 2.00 12/05/21 14:00 68 19 126/55 (78) Physical Exam General: Alert. No acute distress. She is obese. Eye: No xanthelasma. HENT: Normocephalic. Neck: Jugular venous pressure does not appear elevated. Respiratory: Lungs are clear to auscultation. Respirations are non-labored. Breath sounds are equal. Symmetrical chest wall expansion. Cardiovascular: Normal rate. Regular rhythm. 2/6 systolic ejection murmur. No gallop. No edema. Gastrointestinal: Soft. Normal bowel sounds. Skin: Warm. Dry. Neurologic: Alert and oriented to person, place, time. Cranial nerves 3-11 grossly intact. Psychiatric: Cooperative. Appropriate mood & affect. REGADENOSON NUCLEAR STRESS TEST (12/05/2021): 1. Normal heart rate and blood pressure response to regadenoson. 2. There was no chest discomfort, arrhythmias, or electrocardiogram changes during the test. 3. There was normal myocardial perfusion in all segments without evidence of infarction or ischemia. 4. There was normal wall motion in all segments with a calculated ejection fraction of 83%. Labs Laboratory Tests Test 12/05/21 03:30 Range/Units White Blood Count 9.2 4.3-11.0 10^3/uL Red Blood Count 5.00 3.80-5.11 10^6/uL Hemoglobin 15.1 11.5-16.0 g/dL Hematocrit 47 35-52 % Mean Corpuscular Volume 95 80-99 fL Mean Corpuscular Hemoglobin 30 25-34 pg Mean Corpuscular Hemoglobin Concent 32 32-36 g/dL Red Cell Distribution Width 12.4 10.0-14.5 % Platelet Count 237 130-400 10^3/uL Mean Platelet Volume 10.4 9.0-12.2 fL Immature Granulocyte % (Auto) 0 % Neutrophils (%) (Auto) 79 H 42-75 % Lymphocytes (%) (Auto) 13 12-44 % Monocytes (%) (Auto) 7 0-12 % Eosinophils (%) (Auto) 0 0-10 % Basophils (%) (Auto) 0 0-10 % Neutrophils # (Auto) 7.3 1.8-7.8 10^3/uL Lymphocytes # (Auto) 1.2 1.0-4.0 10^3/uL Monocytes # (Auto) 0.6 0.0-1.0 10^3/uL Eosinophils # (Auto) 0.0 0.0-0.3 10^3/uL Basophils # (Auto) 0.0 0.0-0.1 10^3/uL Immature Granulocyte # (Auto) 0.0 0.0-0.1 10^3/uL Sodium Level 139 135-145 MMOL/L Potassium Level 3.8 3.6-5.0 MMOL/L Chloride Level 104 98-107 MMOL/L Carbon Dioxide Level 25 21-32 MMOL/L Anion Gap 10 5-14 MMOL/L Blood Urea Nitrogen 13 7-18 MG/DL Creatinine 0.91 0.60-1.30 MG/DL Estimat Glomerular Filtration Rate 63 BUN/Creatinine Ratio 14 Glucose Level 101 70-105 MG/DL Calcium Level 9.5 8.5-10.1 MG/DL Phosphorus Level 3.5 2.3-4.7 MG/DL Magnesium Level 2.1 1.6-2.4 MG/DL Diagnosis/Problems Diagnosis/Problems (1) Troponin level elevated Assessment & Plan: Exact etiology unclear. Her troponin levels became slightly elevated and then declined. She has not been having any significant chest discomfort although does have shortness of breath. Her electrocardiogram is normal. Her echocardiogram is unremarkable and her nuclear stress test was normal. She is on aspirin, beta-jessa and statin medication. This may have been a small type II non-ST elevation myocardial infarction related to the hypertensive urgency. No additional cardiac testing is indicated at this time. I just recommend she continue on aspirin, beta-jessa and statin medication. Given that her troponin level was only marginally elevated and her nuclear stress test was normal, I do not see any strong indications for prescribing clopidogrel. (2) Shortness of breath Assessment & Plan: She has been having dyspnea for at least the past several months, even before she had COVID in June 2021. I suspect some of this may be related to her obesity and some component of deconditioning as well as perhaps long COVID. There are no abnormalities on her cardiac testing to explain shortness of breath. (3) Hypertensive urgency Assessment & Plan: Her blood pressure became elevated while she was in the hospital and was temporarily started on nicardipine infusion which has been discontinued. I resumed her atenolol and started her on lisinopril. Her blood pressure has now improved. (4) Mixed hyperlipidemia Assessment & Plan: Continue atorvastatin. Her LDL is elevated. Since the stress test was normal, I would just keep her on the current dose of atorvastatin that she was taking at home. (5) Primary hypertension Assessment & Plan: As above. (6) Obesity Status: Chronic Assessment & Plan: She needs to work on weight loss. NATE BOONE JR, MD Dec 05, 2021 16:00
[2021-12-05] MEDS: AtorvaSTATin TABLET 10 MG TABLET PO SCH (19:29)
[2021-12-05] MEDS: diphenhydrAMINE 50 MG/ML INJ (BENADRYL) IVP PRN (19:29)
[2021-12-06] VITALS: BP 123/106
[2021-12-06] MEDS ORDERED: DexMEDEtomidine 250 ML DRIP 250 ML IV ONE (00:48)
[2021-12-06] MEDS ORDERED: HALOPERIDOL 5 MG/ML (HALDOL) VIAL ONE (00:48)
[2021-12-06] MEDS ORDERED: DexMEDEtomidine 250 ML DRIP 250 ML IV SCH (01:00)
[2021-12-06] MEDS ORDERED: HALOPERIDOL 5 MG/ML (HALDOL) VIAL IV ONE (01:00)
[2021-12-06] MEDS: ENOXAPARIN 100 MG/1 ML (LOVENOX) SYR SC SCH ×2 (01:41→13:35)
[2021-12-06 08:00] VITALS: BP 145/63
--- NOTE | 2021-12-06 08:14 | Tele-ICU Progress Note ---
Subjective Date Seen by a Provider: Dec 06, 2021 Time Seen by a Provider: 08:08 Subjective/Events-last exam Nuclear myocardial scan negative for ischemia, still has SOB, may be from COPD, obesity Hb 15 which I suspect is from reactive polycthemia perhaps from sleep, would look into ANTONINO as OP Would also do 6 min walk Sepsis Event Evaluation Height, Weight, BMI Height: 5'3.00" Weight: 180lbs. 0.0oz. [id number]; 36.09 BMI Method:Stated Exam Exam Patient acknowledged, consented, and participated in this virtual visit which was conducted using real time audio/video Vital Signs Date Time Temp Pulse Resp B/P (MAP) Pulse Ox O2 Delivery O2 Flow Rate FiO2 12/06/21 08:00 35.9 12/06/21 06:13 97 Nasal Cannula 2.00 12/06/21 04:00 36.0 Nasal Cannula 2.00 12/06/21 00:28 84 12/06/21 00:00 63 13 123/106 (112) 97 Nasal Cannula 2.00 12/05/21 23:49 36.8 12/05/21 20:00 66 16 165/72 (103) 97 Nasal Cannula 2.00 12/05/21 20:00 Nasal Cannula 2.00 12/05/21 19:40 36.0 12/05/21 19:00 64 12/05/21 16:00 Nasal Cannula 2.00 12/05/21 16:00 63 22 123/97 (106) 98 Nasal Cannula 2.00 12/05/21 15:42 36.0 12/05/21 14:05 97 Nasal Cannula 2.00 12/05/21 14:00 68 19 126/55 (78) 97 Nasal Cannula 2.00 12/05/21 13:00 71 27 139/69 (92) 97 Nasal Cannula 2.00 12/05/21 12:45 36.1 12/05/21 12:32 60 12/05/21 12:08 59 141/74 12/05/21 12:00 Nasal Cannula 2.00 12/05/21 12:00 59 23 141/72 (95) 99 Nasal Cannula 2.00 12/05/21 12:00 59 23 141/74 (96) 99 Nasal Cannula 2.00 12/05/21 11:00 70 15 124/56 (78) 97 Nasal Cannula 2.00 12/05/21 10:00 84 140/69 (92) Nasal Cannula 2.00 12/05/21 09:39 88 145/66 (92) I & O 12/06/21 07:00 Intake Total 1510 ml Output Total 1150 ml Balance 360 ml Height & Weight Height: 5'3.00" Weight: 180lbs. 0.0oz. 81.551282he; 36.09 BMI Method:Stated General Appearance: No Apparent Distress Respiratory: Lungs Clear Cardiovascular: Regular Rate, Rhythm, Systolic Murmur, Gallop/S4 Capillary Refill: Less Than 3 Seconds Gastrointestinal: normal bowel sounds, non tender, soft Extremity: Non Tender, No Calf Tenderness, No Pedal Edema Neurologic/Psychiatric: Alert, Oriented x3 Results Lab Laboratory Tests 12/04/21 09:55 12/05/21 03:30 Assessment/Plan Assessment/Plan SOB-would continue on Rx for COPD and as OP w/u for ANTONINO if has not been done Do 6 min walk when ready for discharge HTN-BP still up, continue on BP meds labetolol, lisinopril, PRN hydralazine HLD continue on Lipitor On ASA Pt is now Med-Surg pt Critical Care: Critically Ill Patient Time spent with patient (mins): 30 CARLOS FLORES MD Dec 06, 2021 08:14
--- NOTE | 2021-12-06 08:44 | Progress Note ---
Subjective Date Seen by a Provider: Dec 06, 2021 Time Seen by a Provider: 08:42 Subjective/Events-last exam Fwup elevated troponin-I, hypertensive urgency, AMS, UTI. Sitting up in bed. Still with mild headache. Stress test negative. Objective Exam Vital Signs Date Time Temp Pulse Resp B/P (MAP) Pulse Ox O2 Delivery O2 Flow Rate FiO2 12/06/21 08:00 35.9 12/06/21 08:00 80 145/63 (90) Nasal Cannula 2.00 12/06/21 06:13 97 Nasal Cannula 2.00 12/06/21 04:00 36.0 Nasal Cannula 2.00 12/06/21 00:28 84 12/06/21 00:00 63 13 123/106 (112) 97 Nasal Cannula 2.00 12/05/21 23:49 36.8 12/05/21 20:00 66 16 165/72 (103) 97 Nasal Cannula 2.00 12/05/21 20:00 Nasal Cannula 2.00 12/05/21 19:40 36.0 12/05/21 19:00 64 12/05/21 16:00 Nasal Cannula 2.00 12/05/21 16:00 63 22 123/97 (106) 98 Nasal Cannula 2.00 12/05/21 15:42 36.0 12/05/21 14:05 97 Nasal Cannula 2.00 12/05/21 14:00 68 19 126/55 (78) 97 Nasal Cannula 2.00 12/05/21 13:00 71 27 139/69 (92) 97 Nasal Cannula 2.00 12/05/21 12:45 36.1 12/05/21 12:32 60 12/05/21 12:08 59 141/74 12/05/21 12:00 Nasal Cannula 2.00 12/05/21 12:00 59 23 141/72 (95) 99 Nasal Cannula 2.00 12/05/21 12:00 59 23 141/74 (96) 99 Nasal Cannula 2.00 12/05/21 11:00 70 15 124/56 (78) 97 Nasal Cannula 2.00 12/05/21 10:00 84 140/69 (92) Nasal Cannula 2.00 12/05/21 09:39 88 145/66 (92) I & O 12/06/21 07:00 Intake Total 1510 ml Output Total 1150 ml Balance 360 ml Capillary Refill : Less Than 3 Seconds General Appearance: No Apparent Distress Neck: Supple Respiratory: Lungs Clear Cardiovascular: Regular Rate, Rhythm, Gallop/S4 Gastrointestinal: normal bowel sounds, non tender, soft Extremity: Non Tender, No Calf Tenderness, No Pedal Edema Neurologic/Psychiatric: Alert, Oriented x3 Results Lab Microbiology 12/03/21 Urine Culture - Final, Complete Mixed Bacterial Aixa Assessment/Plan Assessment/Plan Assess & Plan/Chief Complaint 1. Elevated Troponin-I--cardiology consulted, ECHO showed aortic sclerosis with aortic regurg with preserved EF of 60-65%, stress test negative 2. Hypertensive Urgency--improved 3. AMS--CT scan negative, likely Hypertensive Encephalopathy--improving 4. UTI--on rocephin Transfer to 4th floor and start PT and OT and if does okay and BP stable, home tomorrow DYLAN DOSS DO Dec 06, 2021 08:44
[2021-12-06] MEDS: DOCUSATE SODIUM 100 MG (COLACE) CAP PO SCH ×2 (09:36→20:03)
[2021-12-06] MEDS: lisINopril 20 MG (PRINIVIL) TABLET PO SCH (09:36)
[2021-12-06] MEDS: ASPIRIN E.C. 81 MG (ECOTRIN) TAB PO SCH (09:36)
[2021-12-06] MEDS: SENNOSIDES 8.6 MG (SENOKOT) TAB PO SCH ×2 (09:36→20:03)
[2021-12-06] MEDS: ATENOLOL 25 MG (TENORMIN) TAB PO SCH (09:36)
--- NOTE | 2021-12-06 10:39 | Occupational Therapy Eval ---
OT Evaluation-General/PLF Medical Diagnosis Admission Date Dec 03, 2021 at 13:10 Medical Diagnosis: NSTEMI Onset Date: Dec 03, 2021 Therapy Diagnosis Therapy Diagnosis: decreased ADL status and weakness Height/Weight Height (Feet): 5 Height (Inches): 3.00 Weight (Pounds): 180 Weight (Ounces): 0.0 Precautions Precautions/Isolations: Fall Prevention, Standard Precautions Referral Physician: Shakira Referral Reason: Evaluation/Treatment Medical History Additional Medical History R TKA, HTN, HLD, GERD, anxiety, COPD, pulmonary fibrosis, breast CA, hyp othyroidism, and arthritis. Current History Admitted for UTI and NSTEMI, but pt became confused around 6am. Social History Home: Single Level Current Living Status: Children (son) Entry Into Home: Stairs With Railing Steps Into Home: 7 ADL-Prior Level of Function SCALE: Activities may be completed with or without assistive devices. 1-Gyyejookso-daokzcf completes the activity by him/herself with no assistance from a helper. 5-Set-up or Clean-up Assistance-helper sets up or cleans up; patient completes activity. [place] assists only prior to or following the activity. 4-Supervision or Touching Assistance-helper provides verbal cues and/or touching/steadying and/or contact guard assistance as patient completes activity. Assistance may be provided throughout the activity or intermittently. 3-Partial/Moderate Assistance-helper does LESS THAN HALF the effort. [place] lifts, holds or supports trunk or limbs, but provides less than half the effort. 2-Substantial/Maximal Assistance-helper does MORE THAN HALF the effort. [place] lifts or holds trunk or limbs and provides more than half the effort. 5-Rfycfcejo-siljyv does ALL the effort. Patient does none of the effort to complete the activity. Or, the assistance of 2 or more helpers is required for the patient to complete the activity. If activity was not attempted, code reason: 7-Patient Refused. 9-Not Applicable-not attempted and the patient did not perform the activity before the current illness, exacerbation or injury. 10-Not Attempted due to Environmental Limitations-(lack of equipment, weather restraints, etc.). 88-Not Attempted due to Medical Conditions or Safety Concerns. ADL PLOF Comments Pt reports being IND with ADLs, IADLs, and functional mobility at PLOF. She continues to work and drive. She lives with her son, and he will check in on her several times a day when she is home and he is at work. Pt did not use AD before hospital admit, but she has used a SPC and FWW in the past after a fall. Self Care: Independent Functional Cognition: Independent DME/Equipment: Tub/Shower Drive Self: Yes OT Current Status Subjective Pt sitting in recliner with son present upon OT arrival, agreeable to eval/tx. Pt was pleasant and cooperative, son reports that pt is closer to her normal mental state. Mental Status/Objective Patient Orientation: Person, Place, Situation Attachments: Telemetry Current Glasses/Contacts: Yes Upper Extremity ROM bilaterally WFL Upper Extremity Sensation Pt reports acute onset of BUE numbness and tingling Upper Extremity Strength ~4/5 bilaterally ADL-Treatment Eating (QC): 6 (per nursing report) Lower Body Dressing (QC): 4 (CGA-SBA for standing balance during brief hike) On/Off Footwear (QC): 4 (SBA for balance when leaning forward. Pt able to don/doff both gripper socks with increased time.) Other Treatments Pt provided information about PLOF and living situation, participated in BUE screen, and demonstrated footwear while seated in recliner. She stood from recliner with CGA, and performed functional mobility with FWW within the halls, requiring CGA d/t c/o dizziness and slight LOB, pt self-corrected. Upon standing from recliner, OT found pt's chair kathrine to be soiled, so pt changed brief and hospital gown upon returning to room. Pt states that she completes dressing from a seated position most of the time when at home. She required CGA for standing balance when hiking brief. Post tx, pt left in recliner with call light on, all needs met, and chair alarm set. Education OT Patient Education: Correct positioning, Energy conservation, Exercise program, Modified ADL techniques, Progress toward Goal/Update tx plan, Purpose of tx/functional activities, Rehab process, Safety issues Teaching Recipient: Patient Teaching Methods: Discussion Response to Teaching: Verbalize Understanding OT Chief Radiation Therapist Goals Intermediate Goals Time Frame: Dec 29, 2021 Eating (QC): 6 Oral Hygiene (QC): 6 Toileting Hygiene (QC): 6 Upper Body Dressing (QC): 6 Lower Body Dressing (QC): 6 On/Off Footwear (QC): 6 Additional Goals: 1-Demonstrate ADL Tasks, 2-Verbalize Understanding, 3- ImproveStrength/Leno 1=Demonstrate adherence to instructed precautions during ADL tasks. 2=Patient will verbalize/demonstrate understanding of assistive devices/modifica tions for ADL. 3=Patient will improve strength/tolerance for activity to enable patient to perform ADL's. OT Education/Plan Problem List/Assessment Assessment: Decreased Activ Tolerance, Decreased Safety Aware, Decreased UE Strength, Impaired Funct Balance, Impaired I ADL's, Impaired Self-Care Skills Discharge Recommendations Plan/Recommendations: Continue POC Equpiment Recommendations-D/C: Extended Bath Bench Treatment Plan/Plan of Care Patient would benefit from OT for education, treatment and training to promote independence in ADL's, mobility, safety and/or upper extremity function for ADL's. Plan of Care: ADL Retraining, Functional Mobility, Group Exercise/Act as Ind, UE Funct Exercise/Act Treatment Duration: Dec 29, 2021 Frequency: 3 times per week (3-5x/wk) Estimated Hrs Per Day: .25 hour per day Time/GCodes Start Time: 10:22 Stop Time: 10:36 Total Time Billed (hr/min): 14 Billed Treatment Time 1, EVL (14') HERNAN HANEY OT Dec 06, 2021 10:39
--- NOTE | 2021-12-06 11:00 | Physical Therapy Evaluation ---
PT Evaluation-General Medical Diagnosis Admission Date Dec 03, 2021 at 13:10 Medical Diagnosis: NSTEMI Onset Date: Dec 03, 2021 Therapy Diagnosis Therapy Diagnosis: impaired mobility Height/Weight Height (Feet): 5 Height (Inches): 3.00 Weight (Pounds): 180 Weight (Ounces): 0.0 Precautions Precautions/Isolations: Fall Prevention, Standard Precautions Referral Physician: Shakira Reason for Referral: Evaluation/Treatment Medical History Additional Medical History Past Medical History Surgery/Hospitalization HX: pmh: htn, high chol, gerd, anxiety sx: hyst, l mastectomy, r tkr Hysterectomy COPD, Pulmonary Fibrosis Currently Using CPAP: No Currently Using BIPAP: No Hypertension Reproductive Disorders: No Female Reproductive Disorders: Denies 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 8-Xoqtwwaosu-nrgjdxw completes the activity by him/herself with no assistance from a helper. 5-Set-up or Clean-up Assistance-helper sets up or cleans up; patient completes activity. [place] assists only prior to or following the activity. 4-Supervision or Touching Assistance-helper provides verbal cues and/or touching/steadying and/or contact guard assistance as patient completes activity. Assistance may be provided throughout the activity or intermittently. 3-Partial/Moderate Assistance-helper does LESS THAN HALF the effort. [place] lifts, holds or supports trunk or limbs, but provides less than half the effort. 2-Substantial/Maximal Assistance-helper does MORE THAN HALF the effort. [place] lifts or holds trunk or limbs and provides more than half the effort. 5-Ujfkfbdak-vygshf does ALL the effort. Patient does none of the effort to complete the activity. Or, the assistance of 2 or more helpers is required for the patient to complete the activity. If activity was not attempted, code reason: 7-Patient Refused. 9-Not Applicable-not attempted and the patient did not perform the activity before the current illness, exacerbation or injury. 10-Not Attempted due to Environmental Limitations-(lack of equipment, weather restraints, etc.). 88-Not Attempted due to Medical Conditions or Safety Concerns. Bed Mobility: 6 Transfers (B,C,W/C): 6 Gait: 6 Stairs: 6 Indoor Mobility (Ambulation): Independent Stairs: Independent Patient states she previously used a rolling walker but hasn't recently. PT Evaluation-Current Subjective Patient in recliner pre tx, agrees to PT, has no complaints of pain. Pt/Family Goals to be independent at home Objective Patient Orientation: Person, Place, Situation ROM/Strength ROM Lower Extremities WNL Strength Lower Extremities grossly 5/5 BLE Sensory Vision: Functional Hearing: Functional Sensation Right Lower Extremit: Intact Sensation Left Lower Extremity: Intact Transfers Sit to Stand (QC): 4 Chair/Odv-po-Hnhwf Xfer(QC): 4 CGA Gait Does the Patient Walk?: Yes Mode of Locomotion: Walk Anticipated Mode of Locomotion: Walk Walk 10 feet (QC): 4 Walk 50 ft with 2 Turns(QC): 4 Walk 150 ft (QC): 4 Distance: 150' Gait Assistive Device: None Comments/Gait Description CGA, patient is slightly unsteady, states she has slight dizziness, no LOB though Balance Sitting Static: Normal Sitting Dynamic: Normal Standing Static: Fair Standing Dynamic: Fair Assessment/Needs Patient in recliner post tx with nurse call, phone, tray, chair alarm on. Patient has impaired mobility, would benefit from using a rolling walker for balance. Rehab Potential: Fair PT Torch Straightener And Heater Goals [facility]dc Goals PT Torch Straightener And Heater Goals Time Frame: Dec 13, 2021 Roll Left & Right (QC): 6 Sit to Lying (QC): 6 Lying-Sitting on Side/Bed(QC): 6 Sit to Stand (QC): 6 Walk 10 feet (QC): 6 Walk 50ft with 2 Turns (QC): 6 Walk 150 ft (QC): 6 PT Plan Problem List Problem List: Activity Tolerance, Functional Strength, Safety, Balance, Gait, Transfer, Bed Mobility, ROM Treatment/Plan Treatment Plan: Continue Plan of Care Treatment Plan: Bed Mobility, Education, Functional Activity Leno, Functional Strength, Gait, Safety, Therapeutic Exercise, Transfers Treatment Duration: Dec 13, 2021 Frequency: 6 times per week Estimated Hrs Per Day: .25 hour per day Patient and/or Family Agrees t: Yes Safety Risks/Education Patient Education: Gait Training, Transfer Techniques, Correct Positioning, Safety Issues Teaching Recipient: Patient Teaching Methods: Demonstration, Discussion Response to Teaching: Reinforcement Needed Discharge Recommendations Plan Patient will perform bed mobility and transfer training, balance and endurance training, functional strengthening, stair training, gait training, and education, to improve functional mobility and independence at home. Therapy Discharge Recommendati: Scheduled Assistance, Home & Family, Post Acute PT Time/GCodes Time In: 1021 Time Out: 1034 Total Billed Treatment Time: 13 Total Billed Treatment 1 visit SANYA ROBLES PT Dec 06, 2021 10:59
[2021-12-06 12:00] VITALS: BP 145/65
[2021-12-06] MEDS: cefTRIAXone 2,000 MG in NS (IVPB) 50 ML IV SCH (13:35)
[2021-12-06 15:55] VITALS: BP 144/78
--- NOTE | 2021-12-06 16:21 | Cardiology Progress Note ---
Progress Note-Cardiology Events since last exam Date Seen by Provider: Dec 06, 2021 Time Seen by Provider: 16:21 Events since last exam I am following her due to elevated troponin level. She was transferred from the intensive care unit to the medical floor earlier today. She denies chest pain, dyspnea, palpitations, or syncope. She has mild bilateral ankle edema. Certain portions of this document may have been dictated utilizing voice recognition technology. Inherent to this technology, typographical and grammatical errors may exist. As much as I am diligent to identify and correct these mistakes, some errors may remain in the document. Vitals Last set of Vitals Signs Vital Signs 12/06/21 12/06/21 12:00 15:55 Temp 36.4 Pulse 66 Resp 18 B/P (MAP) 144/78 (100) Pulse Ox 90 O2 Delivery Room Air O2 Flow Rate 2.00 Exam Vital Signs Vital Signs Date Time Temp Pulse Resp B/P (MAP) Pulse Ox O2 Delivery O2 Flow Rate FiO2 12/06/21 15:55 36.4 66 18 144/78 (100) 90 Room Air 12/06/21 12:00 2.00 Physical Exam General: Alert. No acute distress. She is obese. Eye: No xanthelasma. HENT: Normocephalic. Neck: Jugular venous pressure does not appear elevated. Respiratory: Lungs are clear to auscultation. Respirations are non-labored. Breath sounds are equal. Symmetrical chest wall expansion. Cardiovascular: Normal rate. Regular rhythm. Distant S1/S2. No murmur. No gallop. 1+ bilateral pretibial edema. Gastrointestinal: Soft. Normal bowel sounds. Skin: Warm. Dry. Neurologic: Alert and oriented to person, place, time. Cranial nerves 3-11 grossly intact. Psychiatric: Cooperative. Appropriate mood & affect. Diagnosis/Problems Diagnosis/Problems (1) Troponin level elevated Assessment & Plan: Exact etiology unclear. Her troponin levels became slightly elevated and then declined. She has not been having any significant chest discomfort although does have shortness of breath. Her electrocardiogram is normal. Her echocardiogram was unremarkable and her nuclear stress test was n ormal. She is on aspirin, beta-jessa and statin medication. This may have been a small type II non-ST elevation myocardial infarction related to the hypertensive urgency. No additional cardiac testing is indicated at this time. I just recommend she continue on aspirin, beta-jessa and statin medication. Given that her troponin level was only marginally elevated and her nuclear stress test was normal, I do not see any strong indications for prescribing clopidogrel. (2) Shortness of breath Assessment & Plan: She has been having dyspnea for at least the past several months, even before she had COVID in June 2021. I suspect some of this may be related to her obesity and some component of deconditioning as well as perhaps long COVID. There are no abnormalities on her cardiac testing to explain shortness of breath. (3) Hypertensive urgency Assessment & Plan: Her blood pressure became elevated while she was in the hosp ital and was temporarily started on nicardipine infusion which has been discontinued. I resumed her atenolol and started her on lisinopril. Her blood pressure has now improved. (4) Mixed hyperlipidemia Assessment & Plan: Continue atorvastatin. Her LDL is elevated. Since the stress test was normal, I would just keep her on the current dose of atorvastatin that she was taking at home. (5) Primary hypertension Assessment & Plan: As above. (6) Obesity Status: Chronic Assessment & Plan: She needs to work on weight loss. NATE BOONE JR, MD Dec 06, 2021 16:21
[2021-12-06 19:23] VITALS: BP 144/72
[2021-12-06] MEDS: AtorvaSTATin TABLET 10 MG TABLET PO SCH (20:03)
[2021-12-06 23:23] VITALS: BP 157/61
[2021-12-07] MEDS: ENOXAPARIN 100 MG/1 ML (LOVENOX) SYR SC SCH (01:27)
[2021-12-07 03:50] VITALS: BP 162/71
[2021-12-07 05:15] LABS: BASOPHILS % (AUTO) 1 % (0-10); EOSINOPHILS # (AUTO) 0.1 10^3/uL (0.0-0.3); EOSINOPHILS % (AUTO) 1 % (0-10); HEMATOCRIT 44 % (35-52); LYMPHOCYTES # (AUTO) 1.5 10^3/uL (1.0-4.0); LYMPHOCYTES % (AUTO) 27 % (12-44); MEAN CORPUSCULAR HEMOGLOBIN 31 pg (25-34); MEAN CORPUSCULAR HGB CONC 32 g/dL (32-36); MEAN CORPUSCULAR VOLUME 95 fL (80-99); MEAN PLATELET VOLUME 10.6 fL (9.0-12.2); MONOCYTES # (AUTO) 0.5 10^3/uL (0.0-1.0); MONOCYTES % (AUTO) 9 % (0-12); NEUTROPHILS # (AUTO) 3.5 10^3/uL (1.8-7.8); NEUTROPHILS % (AUTO) 62 % (42-75); PLATELET COUNT 167 10^3/uL (130-400); WHITE BLOOD COUNT 5.6 10^3/uL (4.3-11.0)
[2021-12-07 05:42] LABS: CALCIUM 9.2 MG/DL (8.5-10.1); CREATININE SERUM 0.86 MG/DL (0.60-1.30); POTASSIUM 4.4 MMOL/L (3.6-5.0)
[2021-12-07 08:00] VITALS: BP 189/74
[2021-12-07] MEDS: ASPIRIN E.C. 81 MG (ECOTRIN) TAB PO SCH (08:29)
[2021-12-07] MEDS: DOCUSATE SODIUM 100 MG (COLACE) CAP PO SCH (08:29)
[2021-12-07] MEDS: SENNOSIDES 8.6 MG (SENOKOT) TAB PO SCH (08:30)
[2021-12-07] MEDS: ATENOLOL 25 MG (TENORMIN) TAB PO SCH (08:30)
[2021-12-07] MEDS: lisINopril 20 MG (PRINIVIL) TABLET PO SCH (08:30)
[2021-12-07] MEDS ORDERED: FLUT9.9S NS (08:45)
[2021-12-07] MEDS ORDERED: LISI40TA9 PO (08:45)
[2021-12-07] MEDS ORDERED: lisINopril 40 MG (PRINIVIL) TABLET PO SCH (09:00)
[2021-12-07 10:40] VITALS: BP 200/90
[2021-12-07] MEDS: hydrALAZINE (APESOLINE) 20 MG/ML VIAL IV PRN (10:50)
--- NOTE | 2021-12-07 10:54 | Occ Therapy Progress Note ---
Therapy Progress Note Pt on hold per nursing request d/t high BP. OT will continue to monitor pt's medical status and will see next available time. HERNAN HANEY OT Dec 07, 2021 10:54
[2021-12-07 11:44] VITALS: BP 148/78
--- NOTE | 2021-12-07 11:57 | Cardiology Progress Note ---
Progress Note-Cardiology Events since last exam Date Seen by Provider: Dec 07, 2021 Time Seen by Provider: 11:54 Events since last exam I am following her due to abnormal troponin level and hypotension. The primary provider has placed a discharge order. The patient will be going home where she lives with her son. She denies chest discomfort, dyspnea at rest, palpitations, or syncope. She has mild bilateral ankle edema. Certain portions of this document may have been dictated utilizing voice recognition technology. Inherent to this technology, typographical and grammatical errors may exist. As much as I am diligent to identify and correct these mistakes, some errors may remain in the document. Vitals Last set of Vitals Signs Vital Signs 12/07/21 12/07/21 08:00 13:04 Temp 36.3 Pulse 64 Resp 20 B/P (MAP) 148/78 Pulse Ox 95 O2 Delivery Room Air O2 Flow Rate 2.00 Labs Labs Laboratory Tests 12/07/21 05:13 Exam Vital Signs Vital Signs Date Time Temp Pulse Resp B/P (MAP) Pulse Ox O2 Delivery O2 Flow Rate FiO2 12/07/21 13:04 36.3 64 20 148/78 95 Room Air 12/07/21 08:00 2.00 Physical Exam General: Alert. No acute distress. She is obese. Eye: No xanthelasma. HENT: Normocephalic. Neck: Jugular venous pressure does not appear elevated. Respiratory: Lungs are clear to auscultation. Respirations are non-labored. Breath sounds are equal. Symmetrical chest wall expansion. Cardiovascular: Normal rate. Regular rhythm. Distant S1/S2. 2/6 systolic ejection murmur. No gallop. 1+ bilateral pretibial edema. Gastrointestinal: Soft. Normal bowel sounds. Skin: Warm. Dry. Neurologic: Alert and oriented to person, place, time. Cranial nerves 3-11 grossly intact. Psychiatric: Cooperative. Appropriate mood & affect. Labs Laboratory Tests Test 12/07/21 05:13 Range/Units White Blood Count 5.6 4.3-11.0 10^3/uL Red Blood Count 4.58 3.80-5.11 10^6/uL Hemoglobin 14.0 11.5-16.0 g/dL Hematocrit 44 35-52 % Mean Corpuscular Volume 95 80-99 fL Mean Corpuscular Hemoglobin 31 25-34 pg Mean Corpuscular Hemoglobin Concent 32 32-36 g/dL Red Cell Distribution Width 12.4 10.0-14.5 % Platelet Count 167 130-400 10^3/uL Mean Platelet Volume 10.6 9.0-12.2 fL Immature Granulocyte % (Auto) 1 % Neutrophils (%) (Auto) 62 42-75 % Lymphocytes (%) (Auto) 27 12-44 % Monocytes (%) (Auto) 9 0-12 % Eosinophils (%) (Auto) 1 0-10 % Basophils (%) (Auto) 1 0-10 % Neutrophils # (Auto) 3.5 1.8-7.8 10^3/uL Lymphocytes # (Auto) 1.5 1.0-4.0 10^3/uL Monocytes # (Auto) 0.5 0.0-1.0 10^3/uL Eosinophils # (Auto) 0.1 0.0-0.3 10^3/uL Basophils # (Auto) 0.0 0.0-0.1 10^3/uL Immature Granulocyte # (Auto) 0.0 0.0-0.1 10^3/uL Sodium Level 143 135-145 MMOL/L Potassium Level 4.4 3.6-5.0 MMOL/L Chloride Level 108 H 98-107 MMOL/L Carbon Dioxide Level 23 21-32 MMOL/L Anion Gap 12 5-14 MMOL/L Blood Urea Nitrogen 20 H 7-18 MG/DL Creatinine 0.86 0.60-1.30 MG/DL Estimat Glomerular Filtration Rate 67 BUN/Creatinine Ratio 23 Glucose Level 93 70-105 MG/DL Calcium Level 9.2 8.5-10.1 MG/DL Diagnosis/Problems Diagnosis/Problems (1) Troponin level elevated Assessment & Plan: Exact etiology unclear. Her troponin levels became slightly elevated and then declined. She has not been having any significant chest discomfort although does have shortness of breath. Her electrocardiogram is normal. Her echocardiogram was unremarkable and her nuclear stress test was normal. She is on aspirin, beta-jessa and statin medication. This may have been a small type II non-ST elevation myocardial infarction related to the hypertensive urgency. No additional cardiac testing is indicated at this time. I just recommend she continue on aspirin, beta-jessa and statin medication. Given that her troponin level was only marginally elevated and her nuclear stress test was normal, I do not see any strong indications for prescribing clopidogrel. (2) Hypertensive urgency Assessment & Plan: Her blood pressure became elevated while she was in the hospital and was temporarily started on nicardipine infusion which has been discontinued. I resumed her atenolol and started her on lisinopril. Her blood pressure has now improved. (3) Shortness of breath Assessment & Plan: She has been having dyspnea for at least the past several months, even before she had COVID in June 2021. I suspect some of this may be related to her obesity and some component of deconditioning as well as perhaps long COVID. There are no abnormalities on her cardiac testing to explain shortness of breath. (4) Mixed hyperlipidemia Assessment & Plan: Continue atorvastatin. Her LDL is elevated. Since the stress test was normal, I would just keep her on the current dose of atorvastatin that she was taking at home. (5) Primary hypertension Assessment & Plan: As above. (6) Obesity Status: Chronic Assessment & Plan: She needs to work on weight loss. NATE BOONE JR, MD Dec 07, 2021 11:56
--- NOTE | 2021-12-07 12:53 | Discharge Summary ---
Diagnosis/Chief Complaint Date of Admission Dec 03, 2021 at 13:10 Date of Discharge Discharge Date: Dec 07, 2021 Discharge Diagnosis 1. Elevated Troponin-I--cardiology consulted, ECHO showed aortic sclerosis with aortic regurg with preserved EF of 60-65%, stress test negative, likely Type II SC from hypertensive urgency 2. Hypertensive Urgency--improved 3. AMS--CT scan negative, likely Hypertensive Encephalopathy--resolved 4. UTI--improved 5. Cephalgia--stable--patient states is chronic and had normal CT scan of brain Discharge Summary Hospital Course Was the Problem List Reviewed?: Yes Hospital Course This is an 81 year old female who presented to the emergency room with flu-like symptoms for about 1 week. She was reporting fatigue, VARGAS as well as some shortness of breath and non-specific chest pain. Her laboratory revealed an elevated troponin-I and her blood pressure was also elevated at 200/82. She was also found to have a UTI. She was admitted to the medical floor on telemetry for repeat cardiac enzymes as well as cardiology consult and treatment of her UTI. Her Troponin-I did elevate slightly to a high of 0.047 but she denied chest pain. ECHO revealed aortic sclerosis with aortic regurgitation and preserved EF of 60-65%. She had confusion with hypertensive urgency requiring a stat CT of the head which was negative and transfer to the ICU for a Cardene drip. By the following day, her blood pressure was improved and the cardene drip was discontinued. She originally refused a stress test but after discussing this with both her son and the patient, she agreed to a nuclear stress test which showed no signs of ischemia. Since she had preserved EF on ECHO with a normal stress test and no chest pain, it was felt that her elevated troponin-I was due to her hypertensive urgency and that she could be discharged home to continue on a beta jessa, statin and aspririn. She was transferred back to the medical floor and PT and OT were started and she was up ambulating with no assistance. On the morning of discharge, her blood pressure was elevated but came down with her morning dose of atenolol and adjustment of lisinopril. She deferred home health for discharge as her son lives and works close by and she feels she is back to her baseline. She will follow up with me in my office in 1 week. Labs Laboratory Tests 12/05/21 03:30: Neutrophils (%) (Auto) 79H 8/11/22 05:13: Chloride Level 108H, Blood Urea Nitrogen 20H Procedures None. Discharge Physical Examination Allergies: Coded Allergies: Iodinated Contrast Media (Verified Allergy, Unknown, 04/09/17) Vitals & I&Os Vital Signs Date Time Temp Pulse Resp B/P (MAP) Pulse Ox O2 Delivery O2 Flow Rate FiO2 12/07/21 11:44 36.3 64 20 148/78 (101) 95 Room Air 12/07/21 08:00 2.00 General Appearance: Alert, Oriented X3, No Acute Distress Respiratory: Clear to Auscultation Cardiovascular: Regular Rate Abdominal: Normal Bowel Sounds, Soft, No Tenderness Extremities: No Clubbing, No Cyanosis, No Edema Psych/Mental Status: Mental Status NL, Mood NL Discharge Home Medications Reviewed and agree with Discharge Medication list on patient's Discharge Instruction sheet Instructions to Patient/Family Please see electronic discharge instructions given to patient. DYLAN DOSS DO Dec 07, 2021 12:53
[2021-12-07 13:04] VITALS: BP 148/78
== END 2021-12-07 12:55 | disposition home or self-care (01) ==
LOC: EDUNIT# 11:20 → ER 11:21 → UNDOADMOB 13:10 → 4TH 13:10 → ICU 12-04 08:59 → 4TH 12-06 11:57 → ICU 12-06 11:57 → UNDODISOB 12-07 12:55
PROVIDERS: ADMIT Internal Medicine; ATTEND Family Medicine
DX: I21.4 Non-ST elevation (NSTEMI) myocardial infarction (principal); Z86.16 Personal history of COVID-19; I16.0 Hypertensive urgency; R41.82 Altered mental status, unspecified; N39.0 Urinary tract infection, site not specified; Z79.899 Other long term (current) drug therapy; E78.2 Mixed hyperlipidemia; I10 Essential (primary) hypertension; E66.9 Obesity, unspecified; Z68.36 Body mass index [BMI] 36.0-36.9, adult
CPT/HCPCS: 36410; 70450; 71045; 71046; 74176; 76937; 78452; 80048 ×3; 80053; 80061; 81000; 83690; 83735; 83880; 84100; 84443; 84484; 85025 ×3; 85027 ×2; 87088; 87636; 93005; 93017; 93306; 94760; 96366 ×2; 96372 ×3; 96375 ×2; 96376 ×4; 97162; 97165; 99284; A9502; C1751; G0378 ×3; 36415

== ENCOUNTER → 2022-09-21 | Outpatient (CLI) | payer MEDICARE ==
[~2022-09-21] MED LIST changes: +ASPI-1238 PO; +ATOR20TA66 PO; +CHOL100048 PO; +CHOL500L3 PO; +FLUO10CA33 PO; +FLUT9.9S NS; +LISI40TA9 PO
--- NOTE | 2022-09-21 17:43 | Diagnostic Imaging Report ---
INDICATION: Routine screening. COMPARISON: Prior mammograms from 09/20/2021 and 09/19/2020. EXAMINATION: 2D and 3D unilateral right screening mammography was performed with CAD. The current study was also evaluated with a Computer Aided Detection (CAD) system. FINDINGS: The right breast is heterogeneously dense, limiting the sensitivity of mammography. The parenchymal pattern is stable. No mass or malignant-appearing microcalcifications are seen. Right axilla is unremarkable. IMPRESSION: No mammographic features suspicious for malignancy are identified. ACR BI-RADS Category 1: Negative. Result letter will be mailed to the patient. Note: At least 10% of breast cancer is not imaged by mammography. Dictated by: Dictated on workstation # [id number]
== END ==
LOC: RAD 09:35
PROVIDERS: ATTEND Nurse Practitioner Family
DX: Z12.31 Encounter for screening mammogram for malignant neoplasm of breast (principal)
CPT/HCPCS: 77063